=== PATIENT | male | born 1950 | race Caucasian/White ===

== ENCOUNTER 2017-03-09 15:32 | Emergency (ER) | payer BC ==
[2017-03-09 15:48] VITALS: BP 138/75; PULSE 81; RESP 18; TEMP 97.8
[2017-03-09] MEDS ORDERED: DIPH,PERTUS(ACELL)TETVAC-LF 0.5 ML VIAL IM ONE (16:21)
[2017-03-09] MEDS ORDERED: TOPICAL SKIN ADHESIVE 1 EACH AMP TOPICAL ONE (16:21)
--- NOTE | 2017-03-09 16:27 | ED ---
Wound/Laceration HPI - General Chief Complaint: Wound/Laceration Stated Complaint: rt thumb lac Time Seen by Provider: 03/09/17 15:44 Source: patient, RN notes reviewed Mode of arrival: ambulatory Limitations: no limitations - History of Present Illness Initial Comments: Patient 66-year-old male presents to the emergency room for evaluation of right thumb laceration. Patient states he was opening a can of tuna fish and cut his finger. Patient states the area begin to bleed. Patient denies taking blood thinners. Patient states he is not up-to-date on his tetanus vaccine. Patient denies significant pain. Patient denies any other injuries during incident. Patient denies numbness or tingling in his thumb. - Related Data Allergies Allergy/AdvReac Type Severity Reaction Status Date / Time iodine AdvReac Rash/Hives Verified 03/09/17 15:48 Penicillins AdvReac Rash/Hives Verified 03/09/17 15:48 Review of Systems ROS Statement: Those systems with pertinent positive or pertinent negative responses have been documented in the HPI. ROS Other: All systems not noted in ROS Statement are negative. Past Medical History Past Medical History: Hypertension History of Any Multi-Drug Resistant Organisms: None Reported Past Surgical History: Adenoidectomy, Tonsillectomy Past Psychological History: No Psychological Hx Reported Smoking Status: Current some day smoker Past Alcohol Use History: None Reported Past Drug Use History: None Reported General Exam - General Exam Comments Initial Comments: Sitting in exam room in no acute distress. Limitations: no limitations General appearance: alert, in no apparent distress Head exam: Present: atraumatic, normocephalic, normal inspection Eye exam: Present: normal appearance ENT exam: Present: normal exam Neck exam: Present: normal inspection Respiratory exam: Absent: respiratory distress Right Hand Wrist exam: Present: full ROM, laceration (Superficial laceration on the distal phalanx of thumb medial of nail bed. No active bleeding noted.). Absent : tenderness Vascular: Present: normal capillary refill (Capillary refill less than 2 seconds ), radial pulse (2+), ulnar pulse (2+) Back exam: Present: normal inspection Neurological exam: Present: alert, oriented X3, CN II-XII intact, normal gait Psychiatric exam: Present: normal affect, normal mood Skin exam: Present: warm, dry. Absent: rash Course Vital Signs 03/09/17 15:43 Temperature 97.8 F Pulse Rate 81 Respiratory 18 Rate Blood Pressure 138/75 O2 Sat by Pulse 99 Oximetry Procedures - Laceration Laceration #1 Consent Obtained: verbal consent Indication: laceration Site: other (right thumb) Size (cm): 1 Description: flap Depth: simple, single layer Size of Sutures: other (Dermabond) Patient Tolerated Procedure: well, no complications Medical Decision Making - Medical Decision Making Patient is a 66-year-old male presents to the emergency room for evaluation of a right thumb laceration. Laceration repaired with Dermabond. Patient updated on his tetanus vaccine. Patient states he understands everything that was discussed with him. Return parameters discussed. Case discussed with Dr. Gomes. Disposition Clinical Impression: Thumb laceration Disposition: HOME SELF-CARE Condition: Good Instructions: Laceration (ED), Skin Adhesive Care (ED) Additional Instructions: Do not soak the area in water. Dermabond will fall off in 5-10 days. Please follow up with primary care provider in 1-2 days. If any new symptom arises or symptoms worsen, return to ER as soon as possible. Referrals: Omid Blackburn DO [Primary Care Provider] - 1-2 days Time of Disposition: 16:37
== END 2017-03-09 16:45 | disposition home or self-care (01) ==
LOC: EC 15:32
DX: S61.011A Laceration without foreign body of right thumb without damage to nail, initial encounter (principal); F17.200 Nicotine dependence, unspecified, uncomplicated; Z23 Encounter for immunization; Z88.0 Allergy status to penicillin; Z88.8 Allergy status to other drugs, medicaments and biological substances; W26.8XXA Contact with other sharp object(s), not elsewhere classified, initial encounter
CPT/HCPCS: 12001; 90471; 90715; 99282

== ENCOUNTER 2017-10-04 06:19 | Inpatient (IN) | payer BC ==
[2017-10-04] MEDS ORDERED: HYDROmorphone 1 MG/ML 1 ML SYRINGE IM STA (06:26)
[2017-10-04] MEDS ORDERED: ONDANSETRON ODT 4 MG TAB PO STA (06:26)
--- NOTE | 2017-10-04 06:28 | ED ---
General Adult HPI - General Source: RN notes reviewed <Simone Vasquez - Last Filed: 10/04/17 06:58> <Micheal Gomes - Last Filed: 10/04/17 10:16> - General Stated complaint: Pulled muscle in chest Time Seen by Provider: 10/04/17 06:20 - History of Present Illness Initial comments: This is a 67-year-old male who comes in complaining of right sided chest wall pain on the lateral aspect of the chest. Patient states he fell on that side on night ever since his been painful to breathe. Patient states it does not hurt to palpate but anytime he breathes he has pain in that area. Patient states when he doesn't breathe deep he has no pain whatsoever. Patient states been ongoing since and it has gotten any better. Patient states she did take Motrin this morning but he hasn't been taking it regularly. Patient denies any head pain or neck pain. Patient denies any anterior chest pain. Patient denies any shortness of breath difficulty breathing. Patient denies any diaphoresis. Patient denies any nausea. Patient denies any abdominal pain. (Simone Vasquez) - Related Data Allergies Allergy/AdvReac Type Severity Reaction Status Date / Time iodine AdvReac Rash/Hives Verified 10/04/17 07:16 Penicillins AdvReac Rash/Hives Verified 10/04/17 07:16 Review of Systems ROS Other: All systems not noted in ROS Statement are negative. <Simone Vasquez - Last Filed: 10/04/17 06:58> ROS Other: All systems not noted in ROS Statement are negative. <Micheal Gomes - Last Filed: 10/04/17 10:16> ROS Statement: Those systems with pertinent positive or pertinent negative responses have been documented in the HPI. Past Medical History Past Medical History: Hypertension History of Any Multi-Drug Resistant Organisms: None Reported Past Surgical History: Adenoidectomy, Tonsillectomy Past Psychological History: No Psychological Hx Reported Smoking Status: Current some day smoker Past Alcohol Use History: None Reported Past Drug Use History: None Reported <Simone Vasquez - Last Filed: 10/04/17 06:58> General Exam <Simone Vasquez - Last Filed: 10/04/17 06:58> <Gomes,Micheal - Last Filed: 10/04/17 10:16> - General Exam Comments Initial Comments: GENERAL: Patient is well-developed and well-nourished. Patient is nontoxic and well- hydrated and is in mild distress with deep breathing ENT: Neck is soft and supple. No significant lymphadenopathy is noted. Oropharynx is clear. Moist mucous membranes. Neck has full range of motion without eliciting any pain. EYES: The sclera were anicteric and conjunctiva were pink and moist. Extraocular movements were intact and pupils were equal round and reactive to light. Eyelids were unremarkable. PULMONARY: Unlabored respirations. Good breath sounds bilaterally. No audible rales rhonchi or wheezing was noted. CARDIOVASCULAR: There is a regular rate and rhythm without any murmurs gallops or rubs. ABDOMEN: Soft and nontender with normal bowel sounds. No palpable organomegaly was noted. There is no palpable pulsatile mass. SKIN: Skin is clear with no lesions or rashes and otherwise unremarkable. NEUROLOGIC: Patient is alert and oriented x3. Cranial nerves II through XII are grossly intact. Motor and sensory are also intact. Normal speech, volume and content. Symmetrical smile. MUSCULOSKELETAL: Normal extremities with adequate strength and full range of motion. No lower extremity swelling or edema. No calf tenderness. LYMPHATICS: No significant lymphadenopathy is noted PSYCHIATRIC: Normal psychiatric evaluation. Normal interpersonal interactions appears functionally intact in deals appropriately with others. No signs of depression. No signs of anxiety. (Simone Vasquez) Vital Signs 10/04/17 10/04/17 06:31 08:41 Temperature 97.5 F L Pulse Rate 100 108 H Respiratory 18 18 Rate Blood Pressure 147/72 152/67 O2 Sat by Pulse 100 Oximetry Medical Decision Making <Simone Vasquez - Last Filed: 10/04/17 06:58> - Lab Data Result diagrams: 10/04/17 06:50 10/04/17 06:50 - Radiology Data Radiology results: report reviewed (Gallbladder ultrasound shows cholelithiasis and prominent size of the gallbladder. Numerous focal nodules concerning for neoplasm or hepatocellular carcinoma. Computed tomography scan of the chest shows no definite pulmonary embolism. Small right effusion. Liver masses concerning for hepatocellular carcinoma. Questionable portal vein thrombosis.) , image reviewed (Chest x-ray shows no acute process. Thoracic spine suggesting alkalosic spondylitis) <Micheal Gomes - Last Filed: 10/04/17 10:16> - Medical Decision Making EKG shows sinus tachycardia with frequent PVCs at 106 bpm NC interval is 134 QRS is 88 QT interval 3:30 QTC is 438. Patient's EKG shows some ST segment depression in precordial leads V3 through V6 Dr. Gomes will be taking over the care of this patient at 7 AM (Simone Vasquez) Patient reevaluated and updated. Case discussed with Dr. guevara, who will admit for Dr. Blackburn. Consults will be placed. (Micheal Gomes) - Lab Data Lab Results 10/04/17 10/04/17 10/04/17 Range/Units 06:50 06:50 06:50 WBC 10.5 (3.8-10.6) k/uL RBC 3.98 L (4.30-5.90) m/uL Hgb 10.9 L (13.0-17.5) gm/dL Hct 35.2 L (39.0-53.0) % MCV 88.5 (80.0-100.0) fL MCH 27.3 (25.0-35.0) pg MCHC 30.9 L (31.0-37.0) g/dL RDW 13.2 (11.5-15.5) % Plt Count 385 (150-450) k/uL Neutrophils % 81 % Lymphocytes % 8 % Monocytes % 9 % Eosinophils % 1 % Basophils % 0 % Neutrophils # 8.4 H (1.3-7.7) k/uL Lymphocytes # 0.8 L (1.0-4.8) k/uL Monocytes # 0.9 (0-1.0) k/uL Eosinophils # 0.1 (0-0.7) k/uL Basophils # 0.0 (0-0.2) k/uL Hypochromasia Slight PT (9.0-12.0) sec INR (<1.2) APTT (22.0-30.0) sec D-Dimer (<0.60) mg/L FEU Sodium 140 (137-145) mmol/L Potassium 4.6 (3.5-5.1) mmol/L Chloride 106 (98-107) mmol/L Carbon Dioxide 23 (22-30) mmol/L Anion Gap 11 mmol/L BUN 11 (9-20) mg/dL Creatinine 0.73 (0.66-1.25) mg/dL Est GFR (MDRD) Af Amer >60 (>60 ml/min/1.73 sqM) Est GFR (MDRD) Non-Af >60 (>60 ml/min/1.73 sqM) Glucose 182 H (74-99) mg/dL Calcium 9.3 (8.4-10.2) mg/dL Magnesium 2.0 (1.6-2.3) mg/dL Total Bilirubin 0.8 (0.2-1.3) mg/dL AST 122 H (17-59) U/L ALT 113 H (21-72) U/L Alkaline Phosphatase 381 H (38-126) U/L Total Creatine Kinase 300 H (55-170) U/L CK-MB (CK-2) 11.1 H* (0.0-2.4) ng/mL CK-MB (CK-2) Rel Index 3.7 Troponin I <0.012 (0.000-0.034) ng/mL Total Protein 6.0 L (6.3-8.2) g/dL Albumin 3.4 L (3.5-5.0) g/dL 10/04/17 Range/Units 06:50 WBC (3.8-10.6) k/uL RBC (4.30-5.90) m/uL Hgb (13.0-17.5) gm/dL Hct (39.0-53.0) % MCV (80.0-100.0) fL MCH (25.0-35.0) pg MCHC (31.0-37.0) g/dL RDW (11.5-15.5) % Plt Count (150-450) k/uL Neutrophils % % Lymphocytes % % Monocytes % % Eosinophils % % Basophils % % Neutrophils # (1.3-7.7) k/uL Lymphocytes # (1.0-4.8) k/uL Monocytes # (0-1.0) k/uL Eosinophils # (0-0.7) k/uL Basophils # (0-0.2) k/uL Hypochromasia PT 11.8 (9.0-12.0) sec INR 1.2 H (<1.2) APTT 20.8 L (22.0-30.0) sec D-Dimer 1.65 H (<0.60) mg/L FEU Sodium (137-145) mmol/L Potassium (3.5-5.1) mmol/L Chloride (98-107) mmol/L Carbon Dioxide (22-30) mmol/L Anion Gap mmol/L BUN (9-20) mg/dL Creatinine (0.66-1.25) mg/dL Est GFR (MDRD) Af Amer (>60 ml/min/1.73 sqM) Est GFR (MDRD) Non-Af (>60 ml/min/1.73 sqM) Glucose (74-99) mg/dL Calcium (8.4-10.2) mg/dL Magnesium (1.6-2.3) mg/dL Total Bilirubin (0.2-1.3) mg/dL AST (17-59) U/L ALT (21-72) U/L Alkaline Phosphatase (38-126) U/L Total Creatine Kinase (55-170) U/L CK-MB (CK-2) (0.0-2.4) ng/mL CK-MB (CK-2) Rel Index Troponin I (0.000-0.034) ng/mL Total Protein (6.3-8.2) g/dL Albumin (3.5-5.0) g/dL Disposition <Simone Vasquez - Last Filed: 10/04/17 06:58> Decision Time: 10:16 <Micheal Gomes - Last Filed: 10/04/17 10:16> Clinical Impression: Right-sided chest pain, Liver lesion, Cholelithiasis Disposition: ADMITTED IP TO THIS [facility] Referrals: Omid Blackburn DO [Primary Care Provider] - 1-2 days
--- NOTE | 2017-10-04 07:10 | XR ---
EXAM: XR Chest, 2 Views CLINICAL HISTORY: Reason: Difficulty breathing TECHNIQUE: Frontal and lateral views of the chest. COMPARISON: No relevant prior studies available. FINDINGS: Lungs: Unremarkable. No consolidation. Pleural space: Unremarkable. No pneumothorax. Heart: Unremarkable. No cardiomegaly. Mediastinum: Unremarkable. Bones/joints: Degenerative changes of the spine. Appearance of marginal syndesmophytes throughout the spine. Correlate for ankylosing spondylitis Upper abdomen: Elevated right hemidiaphragm. IMPRESSION: 1. No evidence of acute cardiopulmonary disease. 2. Appearance of the thoracic spine suggestive of ankylosing spondylitis.
[2017-10-04 07:14] LABS: Basophils % (A) 0 %; CH 27.3; Eosinophils # (A) 0.1 k/uL (0-0.7); Eosinophils % (A) 1 %; HCT 35.2 % (39.0-53.0); HDW 2.57; HGB 10.9 gm/dL (13.0-17.5); Hypochromasia Slight; Luc % (Auto) 2; Lymphocytes # (A) 0.8 k/uL (1.0-4.8); Lymphocytes % (A) 8 %; MCH 27.3 pg (25.0-35.0); MCHC 30.9 g/dL (31.0-37.0); MCV 88.5 fL (80.0-100.0); Mean Platelet Volume 7.8; Monocytes # (A) 0.9 k/uL (0-1.0); Monocytes % (A) 9 %; Neutrophils # (A) 8.4 k/uL (1.3-7.7); Neutrophils % (A) 81 %; RBC 3.98 m/uL (4.30-5.90); RDW 13.2 % (11.5-15.5); WBC 10.5 k/uL (3.8-10.6); WBC (Perox) 10.88
[2017-10-04 07:25] LABS: ALT 113 U/L (21-72); AST 122 U/L (17-59); Alkaline Phosphatase 381 U/L (38-126); Anion Gap 11 mmol/L; Blood Urea Nitrogen 11 mg/dL (9-20); Calcium 9.3 mg/dL (8.4-10.2); Carbon Dioxide 23 mmol/L (22-30); Chloride 106 mmol/L (98-107); Glucose 182 mg/dL (74-99); Non-African American GFR(MDRD) >60 (>60 ml/min/1.73 sqM); Potassium 4.6 mmol/L (3.5-5.1); Sodium 140 mmol/L (137-145); Total Bilirubin 0.8 mg/dL (0.2-1.3)
[2017-10-04 07:28] LABS: INR 1.2 (<1.2); Prothrombin Time 11.8 sec (9.0-12.0)
[2017-10-04 07:37] LABS: Creatine Kinase 300 U/L (55-170)
[2017-10-04 07:48] LABS: Partial Thromboplastin Time 20.8 sec (22.0-30.0)
[2017-10-04 07:49] LABS: Troponin I <0.012 ng/mL (0.000-0.034)
[2017-10-04 08:00] LABS: Creatine Kinase MB 11.1 ng/mL (0.0-2.4)
[2017-10-04] MEDS ORDERED: methylPREDNISolone SOD SUCCI 125 MG/2 ML VIAL IV STA (08:13)
[2017-10-04] MEDS ORDERED: RX INFO: IV CONTRAST WAS GIVEN 1 EACH MISC MISCELLANE PRN (08:13)
[2017-10-04] MEDS ORDERED: FAMOTIDINE 20 MG/2 ML VIAL IV STA (08:13)
[2017-10-04] MEDS ORDERED: diphenhydrAMINE 50 MG/ML 1 ML VIAL IVP STA (08:13)
--- NOTE | 2017-10-04 09:08 | US ---
EXAMINATION TYPE: US gallbladder DATE OF EXAM: 10/04/2017 COMPARISON: NONE CLINICAL HISTORY: Pain. Intermittent chest and right arm pain EXAM MEASUREMENTS: Liver Length: 18.8 cm Gallbladder Wall: 0.2 cm CBD: 0.7 cm Right Kidney: 10.9 x 5.5 x 4.9 cm Pancreas: visualized portions wnl, head and tail obscured by overlying midline bowel gas Liver: enlarged at 18.8cm, heterogeneous with multiple hypo and isoechoic lesions throughout with la rgest measuring 2.5cm Gallbladder: appears borderline hydropic with transverse measurement of 4.8cm, 1.0cm mobile gallston e. Evidence for sonographic Seaman's sign: no CBD: visualized portions dilated at 0.6cm, limited by overlying bowel gas Right Kidney: no hydro or masses seen, inferior pole limited by overlying bowel gas IMPRESSION: 1. Cirrhotic morphology of the liver with numerous focal nodules neck are present regenerative nodule s or neoplasm such as hepatocellular carcinoma. Further evaluation with enhanced MR could be performe d for characterization. 2. Cholelithiasis and prominent size of the gallbladder without other sonographic signs of cholecysti tis.
--- NOTE | 2017-10-04 09:34 | CT ---
EXAMINATION TYPE: CT angio chest DATE OF EXAM: 10/04/2017 COMPARISON: NONE HISTORY: Patient poor historian. Patient displays weakness. Rule out PE. CT DLP: 609 mGycm. Automated Exposure Control for Dose Reduction was Utilized. CONTRAST: CTA scan of the thorax is performed with IV Contrast, patient injected with 100 mL of Omnipaque 350, pulmonary embolism protocol. MIP Images are created on CT scanner and reviewed. FINDINGS: LUNGS: The lungs are grossly clear, there is no concerning parenchymal mass or nodule identified. T here is pneumothorax seen. The tracheobronchial tree is patent. There is a small right pleural effus ion with associated subsegmental compressive atelectasis. Other areas of pleural parenchymal linear s carring are noted bilaterally. Asymmetric and mild left greater than right gynecomastia is present, m ost likely related to the patient's underlying hepatocellular disease. MEDIASTINUM: There is satisfactory enhancement of the pulmonary artery and its branches, there is no CT evidence for pulmonary embolism. There are no greater than 1 cm hilar or mediastinal lymph nodes. No cardiomegaly or pericardial effusion is seen. Ascending aorta measures 3.0 cm and is within nor mal limits. OTHER: There is a cirrhotic morphology of the liver with innumerable peripherally arterial enhancing hepatic lesions and single 2.6 cm hepatic cyst within segment 8 of the liver. Other smaller possible hepatic cysts are seen within segment IVb and subcapsular within segment 4A. There is also filling de fect within the portal vein and portal vein prominence in size measuring 1.6 cm. This could relate to tumor thrombus, bland thrombus or admixing of contrast and be artifactual in nature. Multiple lymph nodes in the radha hepatis are mildly enlarged measuring up to 1.0 cm in short axis. Small epiphrenic lymph nodes are also seen, nonenlarged. There is partial visualization of a left upper pole renal cyst measuring 6.5 x 7.3 cm, simple in its visualized portions. Multilevel degenerative changes of the thoracic spine are present. IMPRESSION: 1. Slightly suboptimal bolus timing, however no evidence of pulmonary embolus is identified. 2. Cirrhotic morphology of the liver with innumerable peripherally arterial enhancing masses which sh ould be considered multifocal hepatocellular carcinoma until proven otherwise. Regenerative nodules a re also possibility although considered less likely and enhanced MR could be performed for further ch aracterization. Singular hepatic cyst is also present. Possible portal vein thrombosis is also seen, which can be seen in hepatocellular carcinoma although this could be artifactual and related admixing of contrast. 3. Small right pleural effusion with associated right basilar subsegmental compressive atelectasis. 4. Asymmetric left greater than right mild gynecomastia most likely related to the patient's underlyi ng hepatocellular disease.
[2017-10-04] MEDS ORDERED: HYDROmorphone 1 MG/ML 1 ML SYRINGE IVP PRN (10:17)
[2017-10-04] MEDS ORDERED: NALOXONE 0.4 MG/ML 1 ML VIAL IV PRN (10:17)
[2017-10-04] MEDS ORDERED: HEPARIN SODIUM,PORCINE 5,000 UNIT/ML 1 ML VIAL IV ONE (10:20)
[2017-10-04] MEDS: HEPARIN SODIUM,PORCINE/D5W PMX 25,000 UNIT in DEXTROSE/WATER 1 500ML.BAG IV SCH (11:17)
[2017-10-04] MEDS: HYDROmorphone 1 MG/ML 1 ML SYRINGE IVP PRN ×3 (12:38→20:12)
--- NOTE | 2017-10-04 13:33 | P.GSCN ---
<Mercedez Ragland - Last Filed: 10/04/17 13:05> History of Present Illness Consult date: 10/04/17 Reason for Consult: Abnormal gallbladder ultrasound, abnormal CAT scan of chest History of present illness: 67-year-old male who being seen at the request of the attending for surgical eval for abnormal gallbladder ultrasound showing numerous focal nodules concerning for a neoplasm or hepatocellular carcinoma with a CAT scan of the chest with questionable portal vein thrombus noted . Patient presented on the day of admission to the emergency room with a chief complaint of developing right side chest wall pain lateral aspect after he fell last while at work . Patient stated he tripped over some wiring landed on his right chest wall . The next morning had pain with any movement involving the right chest wall. Patient stated the pain did not go away became concerned presented to the emergency room to be evaluated. Patient denied any nausea vomiting diaphoresis or abdominal pain when questioning . In the emergency room the d-dimer was elevated to 1.6. This was followed up with a CAT scan of the chest which showed no evidence of a pulmonary emboli questionable portal vein thrombus noted elevated AST and ALT the gallbladder ultrasound done did show numerous focal nodules with concern for neoplasm or hepatocellular patient gives no history of unintentional weight loss denies alcohol use states it's been greater than 40 years since his last drink of alcohol recently quit smoking cigarettes. Patient has no significant past medical history except for hypertension, hyperlipidemia, glaucoma surgical history tonsillectomy, hernia repair adenoidectomy Review of Systems Essentially unremarkable except as mentioned in the present illness Past Medical History Past Medical History: Eye Disorder, Hyperlipidemia, Hypertension Additional Past Medical History / Comment(s): Bilateral glaucoma History of Any Multi-Drug Resistant Organisms: None Reported Past Surgical History: Adenoidectomy, Hernia Repair, Tonsillectomy Additional Past Surgical History / Comment(s): Bilateral cataract removal with lens implants, R inguinal hernia repair. Past Anesthesia/Blood Transfusion Reactions: No Reported Reaction Smoking Status: Former smoker - Past Family History Father Family Medical History: Diabetes Mellitus Additional Family Medical History / Comment(s): Father of a diabetic coma at the age of 66 yrs. Mother Family Medical History: Cancer Additional Family Medical History / Comment(s): Mother of colon cancer. Pt unable to recall at what age. Medications and Allergies Home Medications Medication Instructions Recorded Confirmed Type Dorzolamide 2% [Trusopt 2%] 1 drop BOTH EYES DAILY 10/04/17 10/04/17 History Ibuprofen [Motrin] 800 mg PO Q8H PRN 10/04/17 10/04/17 History Latanoprost Ophth [Xalatan 0.005%] 1 drops BOTH EYES HS 10/04/17 10/04/17 History Loratadine [Claritin] 10 mg PO DAILY 10/04/17 10/04/17 History Multivitamins, Thera [Multivitamin 1 tab PO DAILY 10/04/17 10/04/17 History (formulary)] Simvastatin [Zocor] 10 mg PO HS 10/04/17 10/04/17 History Valsartan [Diovan] 160 mg PO DAILY 10/04/17 10/04/17 History Allergies Allergy/AdvReac Type Severity Reaction Status Date / Time iodine AdvReac Rash/Hives Verified 10/04/17 07:16 Penicillins AdvReac Rash/Hives Verified 10/04/17 07:16 Surgical - Exam Vital Signs Temp Pulse Resp BP Pulse Ox 97.5 F L 100 18 147/72 100 10/04/17 06:31 10/04/17 06:31 10/04/17 06:31 10/04/17 06:31 10/04/17 06:31 GENERAL APPEARANCE: 67-year-old male patient is alert, oriented, in no acute distress. Well-nourished well-hydrated nontoxic states has discomfort if he takes in a deep breath on the right lateral chest wall VITAL SIGNS: Reviewed HEENT: Head is normocephalic and atraumatic. Pupils are equal and reactive. The nares are patent. Oropharynx is clear without lesions. NECK: Supple without lymphadenopathy. Traches midline. HEART: S1, S2. Regular rate and rhythm. Denying chest pain denying chest pain denies heart palpitations LUNGS: No crackles or wheezes are heard. On room air no shortness of breath noted no cough noted ABDOMEN: Soft, nontender, nondistended with good bowel sounds. No peritoneal signs. No palpable organomegaly or masses. EXTREMITIES: Normal skin color and turgor. No cyanosis, rash, ulceration, clubbing or edema. Radial pedal pulses are 2/4 bilaterally. NEUROLOGICAL: No focal deficits. Strength and sensation are grossly intact. Results - Labs 10/04/17 06:50 10/04/17 06:50 Abnormal Lab Results - Last 24 Hours (Table) 10/04/17 10/04/17 10/04/17 Range/Units 06:50 06:50 06:50 RBC 3.98 L (4.30-5.90) m/uL Hgb 10.9 L (13.0-17.5) gm/dL Hct 35.2 L (39.0-53.0) % MCHC 30.9 L (31.0-37.0) g/dL Neutrophils # 8.4 H (1.3-7.7) k/uL Lymphocytes # 0.8 L (1.0-4.8) k/uL INR (<1.2) APTT (22.0-30.0) sec D-Dimer (<0.60) mg/L FEU Glucose 182 H (74-99) mg/dL AST 122 H (17-59) U/L ALT 113 H (21-72) U/L Alkaline Phosphatase 381 H (38-126) U/L Total Creatine Kinase 300 H (55-170) U/L CK-MB (CK-2) 11.1 H* (0.0-2.4) ng/mL Total Protein 6.0 L (6.3-8.2) g/dL Albumin 3.4 L (3.5-5.0) g/dL 10/04/17 Range/Units 06:50 RBC (4.30-5.90) m/uL Hgb (13.0-17.5) gm/dL Hct (39.0-53.0) % MCHC (31.0-37.0) g/dL Neutrophils # (1.3-7.7) k/uL Lymphocytes # (1.0-4.8) k/uL INR 1.2 H (<1.2) APTT 20.8 L (22.0-30.0) sec D-Dimer 1.65 H (<0.60) mg/L FEU Glucose (74-99) mg/dL AST (17-59) U/L ALT (21-72) U/L Alkaline Phosphatase (38-126) U/L Total Creatine Kinase (55-170) U/L CK-MB (CK-2) (0.0-2.4) ng/mL Total Protein (6.3-8.2) g/dL Albumin (3.5-5.0) g/dL Diabetes panel 10/04/17 Range/Units 06:50 Sodium 140 (137-145) mmol/L Potassium 4.6 (3.5-5.1) mmol/L Chloride 106 (98-107) mmol/L Carbon Dioxide 23 (22-30) mmol/L BUN 11 (9-20) mg/dL Creatinine 0.73 (0.66-1.25) mg/dL Glucose 182 H (74-99) mg/dL Calcium 9.3 (8.4-10.2) mg/dL AST 122 H (17-59) U/L ALT 113 H (21-72) U/L Alkaline Phosphatase 381 H (38-126) U/L Total Protein 6.0 L (6.3-8.2) g/dL Albumin 3.4 L (3.5-5.0) g/dL Calcium panel 10/04/17 Range/Units 06:50 Calcium 9.3 (8.4-10.2) mg/dL Albumin 3.4 L (3.5-5.0) g/dL Pituitary panel 10/04/17 Range/Units 06:50 Sodium 140 (137-145) mmol/L Potassium 4.6 (3.5-5.1) mmol/L Chloride 106 (98-107) mmol/L Carbon Dioxide 23 (22-30) mmol/L BUN 11 (9-20) mg/dL Creatinine 0.73 (0.66-1.25) mg/dL Glucose 182 H (74-99) mg/dL Calcium 9.3 (8.4-10.2) mg/dL Adrenal panel 10/04/17 Range/Units 06:50 Sodium 140 (137-145) mmol/L Potassium 4.6 (3.5-5.1) mmol/L Chloride 106 (98-107) mmol/L Carbon Dioxide 23 (22-30) mmol/L BUN 11 (9-20) mg/dL Creatinine 0.73 (0.66-1.25) mg/dL Glucose 182 H (74-99) mg/dL Calcium 9.3 (8.4-10.2) mg/dL Total Bilirubin 0.8 (0.2-1.3) mg/dL AST 122 H (17-59) U/L ALT 113 H (21-72) U/L Alkaline Phosphatase 381 H (38-126) U/L Total Protein 6.0 L (6.3-8.2) g/dL Albumin 3.4 L (3.5-5.0) g/dL Assessment and Plan Assessment: Impression Present on admission right lateral chest wall pain suspect due to a fall 5 days prior Elevated d-dimer CAT scan of the chest no evidence of a pulmonary emboli with questionable portal vein thrombus Ultrasound of the gallbladder numerous focal nodules concern for neoplasm or hepatic cellular cancer Present on admission elevated AST,ALT , alkaline phosphatase Plan recommend a malignancy workup Tumor markers will be ordered No evidence of an acute surgical abdomen Continue IV heparin until vascular evaluates with recommendations regarding questionable portal vein thrombus Await GI workup may benefit from an MRCP Await Dr. Verde oncology eval Defer to admitting service and other consultants for further medical issues Will follow The above impression and plan of care have been discussed and directed by signing physician. Mercedez Ragland nurse practitioner acting as scribe for signing physician. <Yazan,Ahmad W - Last Filed: 10/05/17 09:36> Surgical - Exam Vital Signs Temp Pulse Resp BP Pulse Ox 97.5 F L 100 18 147/72 100 10/04/17 06:31 10/04/17 06:31 10/04/17 06:31 10/04/17 06:31 10/04/17 06:31 Results - Labs 10/04/17 06:50 10/04/17 06:50 Abnormal Lab Results - Last 24 Hours (Table) 10/04/17 10/04/17 Range/Units 13:02 18:53 Total Creatine Kinase 305 H 262 H (55-170) U/L CK-MB (CK-2) 10.8 H* 8.8 H* (0.0-2.4) ng/mL
[2017-10-04 14:00] LABS: Creatine Kinase 305 U/L (55-170)
[2017-10-04 14:10] LABS: Troponin I <0.012 ng/mL (0.000-0.034)
[2017-10-04 14:14] LABS: Creatine Kinase MB 10.8 ng/mL (0.0-2.4)
--- NOTE | 2017-10-04 16:09 | CONS ---
CONSULTATION This patient is 67-year-old gentleman who has been admitted to Dr. Walter's service with history of discomfort and pain in the right chest wall. The patient had a complete workup including ultrasound and CT scan. Gallbladder ultrasound showed numerous focal nodules concerning for neoplasm and patient had a CT scan of the chest with questionable portal vein thrombosis and we were consulted. Patient has no history of nausea vomiting. PHYSICAL EXAMINATION: On examination, the patient was seen in his room. Neck is supple. No bruit appreciated. Chest is clear. Abdomen is soft, nontender. CT of the chest showed evidence of no evidence of pulmonary embolism. CT of the abdomen showed liver has focal nodules which concerns about a neoplasm or hepatocellular cancer. There is no history of any and evidence of any weight loss. No jaundice or liver pancreatic disease. The patient was seen by the general surgery consult for further evaluation. The patient had a liver function test enzymes are not elevated. At this point, patient is on heparin for possible portal vein thrombosis. The patient was seen by Hematology. At this point, there is no indication for any surgical intervention for portal vein thrombosis. We will wait for hematology consult. Probably we will continue with anticoagulation until the patient has a complete workup for metastatic workup. Thank you very much for the consult. MMODL / IJN: [id number] /
[2017-10-04] MEDS ORDERED: HEPARIN SODIUM,PORCINE 5,000 UNIT/ML 1 ML VIAL IV STA (19:21)
[2017-10-04 19:36] LABS: Creatine Kinase 262 U/L (55-170)
[2017-10-04 19:47] LABS: Troponin I <0.012 ng/mL (0.000-0.034)
[2017-10-04 19:49] LABS: Creatine Kinase MB 8.8 ng/mL (0.0-2.4)
[2017-10-04] MEDS: ATORVASTATIN 10 MG TAB PO SCH (20:11)
[2017-10-04] MEDS: LATANOPROST 0.005% OPHTH DROPS 2.5 ML BTL BOTH EYES SCH (20:11)
--- NOTE | 2017-10-04 22:23 | P.HPIM ---
History of Present Illness H&P Date: 10/04/17 Chief Complaint: Right upper chest wall chest pain HISTORY OF PRESENT ILLNESS: 67-year-old male patient of Dr. Omid Blackburn with chronic stable medical conditions that include bilateral glaucoma, hypertension, hyperlipidemia, who presented to the emergency department with complaints of right-sided chest wall chest pain on the lateral aspect of the chest. Patient states that he fell on at work and this area has been painful ever since making it difficult for him to breathe. States it does not hurt to palpate it only when he takes a deep breath he has pain in that area. Patient has not improved since initial fall and has only gotten worse. Took some Motrin at home with no relief. Denies any head or neck pain, denies shortness of breath or difficulty breathing , denies diaphoresis, nausea, abdominal pain. REVIEW OF SYSTEMS GEN.: [ Tired] EYES: [None] HEENT: [None] NECK: [None] RESPIRATORY: [None CARDIOVASCULAR: Right-sided chest wall chest pain] GASTROINTESTINAL: [None] GENITOURINARY: [None] MUSCULOSKELETAL: Right shoulder pain] LYMPHATICS: [None] HEMATOLOGICAL: [None] PSYCHIATRY: [None] NEUROLOGICAL: [None] PAST MEDICAL HISTORY Past medical history: Hypertension, bilateral glaucoma, hyperlipidemia Past surgical history: Adenoidectomy, tonsillectomy Past psychological history: None reported SOCIAL HISTORY: Additional psychological/social history: Work history: Works for [employer] Marital status: lives with his Smoking history: None reported Alcohol use history: None reported Drug use history: None reported FAMILY HISTORY: Significant for diabetes mellitus, father of a diabetic coma at age 66. HOME MEDICATION: Dorzolamide 1 drop in each eye daily Valsartan 160 mg by mouth daily Simvastatin 10 mg by mouth at at bedtime Multivitamin 1 tab by mouth daily Loratidine.10 mg by mouth daily Latanoprost ophthalmic solution 1 drop both eyes at at bedtime Ibuprofen 800 mg by mouth every 8 hours when necessary ALLERGIES: Iodine/rash and hives Penicillins/rash and hives VITAL SIGNS: [Reviewed. BMI noted] GENERAL: [Average built, lying in bed appears comfortable]. EYES: [Pupils equal. Conjunctiva roula]l. HEENT: [External appearance of nose and ears normal, oral cavity grossly normal] . NECK: [JVD not raised; masses not palpable]. HEART: [First and second heart sounds are normal; no edema]. LUNGS:[ Respiratory rate normal; clear to auscultation]. ABDOMEN: [Soft, mild tenderness to right upper and lower quadrants, liver spleen not palpable, no masses palpable]. LYMPHATICS: [No lymph nodes palpable in the axilla and neck]. PSYCH: [Alert and oriented x3; mood and affect roula]l. MUSCULOSKELETAL: Right shoulder tender to palpation, right chest wall mildly tender to palpation NEUROLOGICAL: [Cranial nerves grossly intact; no facial asymmetry, power and sensation grossly intact]. INVESTIGATIONS: Hemoglobin 10.9, INR 1.2, d-dimer 1.65, AST 122, ALTs 113, alkaline phosphatase 381, CK 300, Gallbladder ultrasound: Cirrhotic morphology of the liver with numerous focal nodules, neck are present regenerative nodules or neoplasm such as hepatocellular carcinoma. Cholelithiasis and prominent size the gallbladder without sonographic signs of cholecystitis Chest CTA: No evidence of pulmonary embolus identified, cirrhotic morphology of the liver with innumerable peripherally arterial enhancing masses which should be considered multifocal hepatocellular carcinoma until proven otherwise. Small right neural effusion with associated right basilar subsegmental compressive atelectasis, asymmetric left greater than right mild gynecomastia most likely related to patient's underlying hepatocellular disease. ASSESSMENT: -Right-sided chest wall chest pain, unclear etiology, in the differential is status post fall injury, cholelithiasis, possible neoplasm. -Essential hypertension -Hyperlipidemia -Seasonal ALLERGIES -IV heparin monitoring PLAN: Home medications reordered, vascular surgery, general surgery, GI, hematology oncology consulted. At the present time general surgery does not feel that this is an acute abdomen, recommending him a malignancy workup hence the consult hematology oncology. Vascular surgery has seen the patient recommends continue the IV heparin until hematology oncology workup is been completed. Await additional input from GI and hematology oncology. Plan of care discussed with the patient the bedside he is in agreement. 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 Walter Past Medical History Past Medical History: Eye Disorder, Hyperlipidemia, Hypertension Additional Past Medical History / Comment(s): Bilateral glaucoma History of Any Multi-Drug Resistant Organisms: None Reported Past Surgical History: Adenoidectomy, Hernia Repair, Tonsillectomy Additional Past Surgical History / Comment(s): Bilateral cataract removal with lens implants, R inguinal hernia repair. Past Anesthesia/Blood Transfusion Reactions: No Reported Reaction Smoking Status: Former smoker - Past Family History Father Family Medical History: Diabetes Mellitus Additional Family Medical History / Comment(s): Father of a diabetic coma at the age of 66 yrs. Mother Family Medical History: Cancer Additional Family Medical History / Comment(s): Mother of colon cancer. Pt unable to recall at what age. Medications and Allergies Home Medications Medication Instructions Recorded Confirmed Type Dorzolamide 2% [Trusopt 2%] 1 drop BOTH EYES DAILY 10/04/17 10/04/17 History Ibuprofen [Motrin] 800 mg PO Q8H PRN 10/04/17 10/04/17 History Latanoprost Ophth [Xalatan 0.005%] 1 drops BOTH EYES HS 10/04/17 10/04/17 History Loratadine [Claritin] 10 mg PO DAILY 10/04/17 10/04/17 History Multivitamins, Thera [Multivitamin 1 tab PO DAILY 10/04/17 10/04/17 History (formulary)] Simvastatin [Zocor] 10 mg PO HS 10/04/17 10/04/17 History Valsartan [Diovan] 160 mg PO DAILY 10/04/17 10/04/17 History Allergies Allergy/AdvReac Type Severity Reaction Status Date / Time iodine AdvReac Rash/Hives Verified 10/04/17 07:16 Penicillins AdvReac Rash/Hives Verified 10/04/17 07:16 Physical Exam Vitals: Vital Signs Temp Pulse Pulse Resp BP BP Pulse Ox 10/04/17 15:00 97.5 F L 100 16 136/64 96 10/04/17 12:00 97.6 F 97 18 138/66 97 10/04/17 11:20 97.7 F 97 18 130/60 99 10/04/17 08:41 108 H 18 152/67 10/04/17 06:31 97.5 F L 100 18 147/72 100 Intake and Output 10/04/17 10/04/17 10/04/17 06:59 14:59 22:59 Intake Total 160.667 Balance 160.667 Intake: Intake, IV Titration 160.667 Amount Heparin Sodium,Porcine/ 160.667 D5w Pmx 25,000 unit In Dextrose/Water 1 500ml. bag @ 20 mls/hr IV .Q24H [facility] Rx#:[id number] Other: Weight 97.069 kg Results CBC & Chem 7: 10/04/17 06:50 10/04/17 06:50 Labs: Abnormal Lab Results - Last 24 Hours (Table) 10/04/17 10/04/17 10/04/17 Range/Units 06:50 06:50 06:50 RBC 3.98 L (4.30-5.90) m/uL Hgb 10.9 L (13.0-17.5) gm/dL Hct 35.2 L (39.0-53.0) % MCHC 30.9 L (31.0-37.0) g/dL Neutrophils # 8.4 H (1.3-7.7) k/uL Lymphocytes # 0.8 L (1.0-4.8) k/uL INR (<1.2) APTT (22.0-30.0) sec D-Dimer (<0.60) mg/L FEU Glucose 182 H (74-99) mg/dL AST 122 H (17-59) U/L ALT 113 H (21-72) U/L Alkaline Phosphatase 381 H (38-126) U/L Total Creatine Kinase 300 H (55-170) U/L CK-MB (CK-2) 11.1 H* (0.0-2.4) ng/mL Total Protein 6.0 L (6.3-8.2) g/dL Albumin 3.4 L (3.5-5.0) g/dL 10/04/17 10/04/17 10/04/17 Range/Units 06:50 13:02 18:53 RBC (4.30-5.90) m/uL Hgb (13.0-17.5) gm/dL Hct (39.0-53.0) % MCHC (31.0-37.0) g/dL Neutrophils # (1.3-7.7) k/uL Lymphocytes # (1.0-4.8) k/uL INR 1.2 H (<1.2) APTT 20.8 L (22.0-30.0) sec D-Dimer 1.65 H (<0.60) mg/L FEU Glucose (74-99) mg/dL AST (17-59) U/L ALT (21-72) U/L Alkaline Phosphatase (38-126) U/L Total Creatine Kinase 305 H 262 H (55-170) U/L CK-MB (CK-2) 10.8 H* 8.8 H* (0.0-2.4) ng/mL Total Protein (6.3-8.2) g/dL Albumin (3.5-5.0) g/dL Thrombosis Risk Factor Assmnt - Choose All That Apply Any of the Below Risk Factors Present?: Yes Each Factor Represents 1 point: Obesity (BMI >25) Other Risk Factors: Yes Each Risk Factor Represents 2 Points: Age 61-74 years Other congenital or acquired thrombophilia - If yes, enter type in comment: No Thrombosis Risk Factor Assessment Total Risk Factor Score: 3 Thrombosis Risk Factor Assessment Level: Moderate Risk
[2017-10-05] MEDS: HEPARIN SODIUM,PORCINE 5,000 UNIT/ML 1 ML VIAL IV PRN ×3 (02:39→16:13)
[2017-10-05] MEDS: HYDROmorphone 1 MG/ML 1 ML SYRINGE IVP PRN ×5 (04:17→20:47)
--- NOTE | 2017-10-05 07:46 | HP ---
HISTORY AND PHYSICAL DATE OF ADMISSION: 10/04/2017 ATTENDING NOTE: This patient is seen and examined by me. I discussed with the nurse practitioner, Dylan. This is a patient who fell at work, injuring his right shoulder, is having right-sided chest wall pain laterally and abdominal pain for about 5 days. Appetite has been good. No nausea, vomiting. No fever. PAST MEDICAL HISTORY: Hyperlipidemia, hypertension, glaucoma.. SOCIAL HISTORY: , works at [employer]. Does not smoke or drink alcohol. FAMILY HISTORY: Diabetes. PHYSICAL EXAMINATION: Temp 97.5, pulse 116, blood pressure 136/64, BMI 33.5. Lungs fair entry. Cardiovascular first and second sounds ARE normal. Minimal upper abdominal tenderness. No guarding or rigidity. Mild right chest wall pain. INVESTIGATIONS: White count 10.5, hemoglobin 10.9, D-dimer 1.65. Potassium 4.6. BUN AND creatinine ARE normal. AST 122, ALT 113. Troponin negative. Gallbladder ultrasound shows cirrhotic morphology of liver with numerous focal nodules and there are also gallstones. CTA again shows cirrhotic morphology of liver with peripheral arterial enhancing hepatic lesions. Possible filling defect within the portal vein. ASSESSMENT: 1. Possible portal vein thrombosis related to liver abnormality. 2. Liver cirrhosis, cause unknown with the consideration for liver malignancy:. 3. Thoracic spine degenerative joint disease. 4. Essential hypertension. 5. Hyperlipidemia. 6. IV heparin monitoring. PLAN: Patient is put on IV heparin. Consultation was made with Dr. Hauser from Vascular, Dr. Lovett from GI and Dr. Renata Rojas from General Surgery. Care was discussed with the patient. Will take it from here. MMODL / IJN: [id number] /
[2017-10-05] MEDS: PANTOPRAZOLE 40 MG/10 ML VIAL IV SCH (08:00)
[2017-10-05] MEDS: LORATADINE 10 MG TAB PO SCH (08:00)
[2017-10-05] MEDS: VALSARTAN 160 MG TAB PO SCH (08:01)
[2017-10-05] MEDS: DORZOLAMIDE HCL 2% DROPS 10 ML BTL BOTH EYES SCH (08:01)
[2017-10-05 09:16] LABS: Basophils % (A) 0 %; CH 26.9; CHCM 30.5; Eosinophils % (A) 0 %; HCT 33.1 % (39.0-53.0); HDW 2.61; HGB 10.4 gm/dL (13.0-17.5); Hypochromasia Moderate; Luc # (Auto) 0.23; Luc % (Auto) 2; Lymphocytes # (A) 1.5 k/uL (1.0-4.8); Lymphocytes % (A) 12 %; MCH 27.7 pg (25.0-35.0); MCHC 31.3 g/dL (31.0-37.0); MCV 88.5 fL (80.0-100.0); Mean Platelet Volume 8.1; Monocytes % (A) 8 %; Neutrophils # (A) 9.7 k/uL (1.3-7.7); Neutrophils % (A) 77 %; RBC 3.74 m/uL (4.30-5.90); RDW 13.1 % (11.5-15.5); WBC 12.5 k/uL (3.8-10.6)
[2017-10-05] MEDS ORDERED: BARIUM SULFATE 450 ML ORAL.SUSP BOTTLE PO PRN (09:32)
[2017-10-05] MEDS ORDERED: RX INFO: IV CONTRAST WAS GIVEN 1 EACH MISC MISCELLANE PRN (09:32)
[2017-10-05] MEDS ORDERED: methylPREDNISolone SOD SUCCI 125 MG/2 ML VIAL IV ONE (09:35)
[2017-10-05] MEDS ORDERED: FAMOTIDINE 20 MG/2 ML VIAL IV ONE (09:35)
[2017-10-05] MEDS ORDERED: diphenhydrAMINE 50 MG/ML 1 ML VIAL IVP ONE (09:35)
[2017-10-05 09:40] LABS: ALT 88 U/L (21-72); AST 86 U/L (17-59); Alkaline Phosphatase 301 U/L (38-126); Anion Gap 9 mmol/L; Blood Urea Nitrogen 9 mg/dL (9-20); Calcium 8.9 mg/dL (8.4-10.2); Carbon Dioxide 25 mmol/L (22-30); Chloride 105 mmol/L (98-107); Glucose 159 mg/dL (74-99); Non-African American GFR(MDRD) >60 (>60 ml/min/1.73 sqM); Potassium 4.3 mmol/L (3.5-5.1); Sodium 139 mmol/L (137-145); Total Bilirubin 0.3 mg/dL (0.2-1.3); Total Protein 5.4 g/dL (6.3-8.2)
[2017-10-05] MEDS ORDERED: HEPARIN SODIUM,PORCINE 5,000 UNIT/ML 1 ML VIAL IV STA (10:28)
--- NOTE | 2017-10-05 10:43 | P.CONS ---
History of Present Illness - Reason for Consult Consult date: 10/05/17 liver lesions Requesting physician: Jan Walter - History of Present Illness 67-year-old gentleman past medical history glaucoma, hyperlipidemia, and hypertension. Patient presents with right upper quadrant abdominal pain and fell last . Consultation requested for liver lesions. Ultrasound abdomen reported cirrhotic morphology of the liver with numerous focal nodules possible regenerative possible neoplasm such as hepatocellular carcinoma. Cholelithiasis without signs of cholecystitis. Liver 18.8 cm. Largest isoechoic lesion measuring 2.5 cm. CBD 0.[address] chest region demonstrated cirrhotic morphology of liver with innumerable peripherally arterial enhancing hepatic lesions including hepatic cysts. Filling defect within the portal vein and portal vein prominence measuring 1.6 cm could relate to tumor thrombus or add mixing of contrast could be artifactual in nature. Mildly enlarged lymph nodes in the radha hepatis measuring up to 1 cm. Gynecomastia left greater than right. Imaging intravenous heparin. No history of known liver disorders. No history of hepatitis alcoholism and intravenous drug abuse or hepatitis B/C. No weight loss. No changes in appetite. No changes in the color of his urine or stool. White count 10.5. Hemoglobin 10.9. Platelets 385. CA-19-9 16.5. CEA less than 0.5. AFP 2.7. Total bilirubin 0.8. AST 122. ALT 113. Alkaline phosphatase 381. INR 1.2. LFTs improve this morning total bili of 0.3. AST 86. ALT 88. Alkaline phosphatase 301. Review of Systems Constitutional: Denies fever, chills, sweats, weight gain, or loss. HEENT: Negative for migraines, bilateral glaucoma, denies earaches, drainage, tinnitus, oral mucosal lesions, dysphagia, or odynophagia. Cardiac: Hyperlipidemia. Hypertension. Negative for chest pain, arrhythmias, or palpitation. Respiratory: Negative for shortness of breath, hemoptysis, cough, or sputum production. Gastrointestinal: See HPI for pertinent findings. Genitourinary: Negative for hematuria, urgency, frequency, polyuria, dysuria, or penile discharge. Musculoskeletal: Negative for muscle aches, swelling, arthritis, and arthralgias. Neurologic: Negative for stroke or TIA. Endocrine: Negative for thyroid problems. Skin: Negative for rash or itching. Psychiatric: Negative history for depression and anxiety All systems: negative (See HPI) Past Medical History Past Medical History: Eye Disorder, Hyperlipidemia, Hypertension Additional Past Medical History / Comment(s): Bilateral glaucoma History of Any Multi-Drug Resistant Organisms: None Reported Past Surgical History: Adenoidectomy, Hernia Repair, Tonsillectomy Additional Past Surgical History / Comment(s): Bilateral cataract removal with lens implants, R inguinal hernia repair. Past Anesthesia/Blood Transfusion Reactions: No Reported Reaction Smoking Status: Former smoker - Past Family History Father Family Medical History: Diabetes Mellitus Additional Family Medical History / Comment(s): Father of a diabetic coma at the age of 66 yrs. Mother Family Medical History: Cancer Additional Family Medical History / Comment(s): Mother of colon cancer. Pt unable to recall at what age. Medications and Allergies Home Medications Medication Instructions Recorded Confirmed Type Dorzolamide 2% [Trusopt 2%] 1 drop BOTH EYES DAILY 10/04/17 10/04/17 History Ibuprofen [Motrin] 800 mg PO Q8H PRN 10/04/17 10/04/17 History Latanoprost Ophth [Xalatan 0.005%] 1 drops BOTH EYES HS 10/04/17 10/04/17 History Loratadine [Claritin] 10 mg PO DAILY 10/04/17 10/04/17 History Multivitamins, Thera [Multivitamin 1 tab PO DAILY 10/04/17 10/04/17 History (formulary)] Simvastatin [Zocor] 10 mg PO HS 10/04/17 10/04/17 History Valsartan [Diovan] 160 mg PO DAILY 10/04/17 10/04/17 History Allergies Allergy/AdvReac Type Severity Reaction Status Date / Time iodine AdvReac Rash/Hives Verified 10/04/17 07:16 Penicillins AdvReac Rash/Hives Verified 10/04/17 07:16 Physical Exam Vitals: Vital Signs Temp Pulse Pulse Resp BP BP Pulse Ox 10/05/17 07:00 99.4 F 107 H 18 139/71 97 10/04/17 23:00 96.9 F L 96 16 117/62 96 10/04/17 15:00 97.5 F L 100 16 136/64 96 10/04/17 12:00 97.6 F 97 18 138/66 97 10/04/17 11:20 97.7 F 97 18 130/60 99 Intake and Output 10/04/17 10/05/17 10/05/17 22:59 06:59 14:59 Intake Total 160.667 184.183 155.15 Balance 160.667 184.183 155.15 Intake: Intake, IV Titration 160.667 184.183 155.15 Amount Heparin Sodium,Porcine/ 160.667 184.183 155.15 D5w Pmx 25,000 unit In Dextrose/Water 1 500ml. bag @ 20 mls/hr IV .Q24H [facility] Rx#:[id number] Other: # Voids 1 2 General appearance: The patient is alert, oriented, in no acute distress. HET: Head is normocephalic and atraumatic. Pupils are equal and reactive. Oropharynx is clear without lesions. Neck: Supple without lymphadenopathy. Trachea midline. Heart: S1 S2. Regular rate and rhythm. Lungs: No crackles or wheezes are heard. Abdomen: Soft, mild right upper quadrant tenderness, nondistended with bowel sounds. No peritoneal signs. No palpable organomegaly or masses. Extremities: Normal skin color and turgor. No cyanosis, rash, ulceration, clubbing, or edema. Radial and pedal pulses are 2/4 bilaterally. Neurological: No focal deficits. Strength and sensation are grossly intact. Results CBC & Chem 7: 10/05/17 08:57 10/05/17 08:57 Labs: Abnormal Lab Results - Last 24 Hours (Table) 10/04/17 10/04/17 10/05/17 Range/Units 13:02 18:53 08:57 WBC 12.5 H (3.8-10.6) k/uL RBC 3.74 L (4.30-5.90) m/uL Hgb 10.4 L (13.0-17.5) gm/dL Hct 33.1 L (39.0-53.0) % Neutrophils # 9.7 H (1.3-7.7) k/uL APTT (22.0-30.0) sec Glucose (74-99) mg/dL AST (17-59) U/L ALT (21-72) U/L Alkaline Phosphatase (38-126) U/L Total Creatine Kinase 305 H 262 H (55-170) U/L CK-MB (CK-2) 10.8 H* 8.8 H* (0.0-2.4) ng/mL Total Protein (6.3-8.2) g/dL Albumin (3.5-5.0) g/dL 10/05/17 10/05/17 Range/Units 08:57 08:57 WBC (3.8-10.6) k/uL RBC (4.30-5.90) m/uL Hgb (13.0-17.5) gm/dL Hct (39.0-53.0) % Neutrophils # (1.3-7.7) k/uL APTT 34.0 H (22.0-30.0) sec Glucose 159 H (74-99) mg/dL AST 86 H (17-59) U/L ALT 88 H (21-72) U/L Alkaline Phosphatase 301 H (38-126) U/L Total Creatine Kinase (55-170) U/L CK-MB (CK-2) (0.0-2.4) ng/mL Total Protein 5.4 L (6.3-8.2) g/dL Albumin 3.0 L (3.5-5.0) g/dL CT scan - chest: report reviewed (Dr. Guerin) US - abdomen: report reviewed (Dr. Guerin) Assessment and Plan (1) Liver lesion Narrative/Plan: Suspicious for carcinoma until proven otherwise cannot excluded metastatic disease. Possible portal vein thrombus per imaging. Chronic liver disease cannot be excluded. Current Visit: Yes Status: Acute Code(s): K76.9 - LIVER DISEASE, UNSPECIFIED SNOMED Code(s): 599533457 (2) Elevated liver enzymes Current Visit: Yes Status: Acute Code(s): R74.8 - ABNORMAL LEVELS OF OTHER SERUM ENZYMES SNOMED Code(s): 382395842 (3) Cirrhosis of liver Narrative/Plan: Etiology unclear Current Visit: Yes Status: Acute Code(s): K74.60 - UNSPECIFIED CIRRHOSIS OF LIVER SNOMED Code(s): 69053787 (4) Cholelithiasis Current Visit: Yes Status: Acute Code(s): K80.20 - CALCULUS OF GALLBLADDER W /O CHOLECYSTITIS W/O OBSTRUCTION SNOMED Code(s): 086351023 (5) Right upper quadrant abdominal pain Current Visit: Yes Status: Acute Code(s): R10.11 - RIGHT UPPER QUADRANT PAIN SNOMED Code(s): 695287662 Plan: 1. Full serologic workup for chronic liver disease. 2. Hepatitis screen. 3. CT ultrasound reviewed with radiologist before proceeding with liver biopsy would advise CT abdomen and pelvis with contrast rule to out primary GI pathology. 4. Oncology consultation. We'll follow closely with you. Thank you for this kind referral and the opportunity to participate in the care of your patient. This consultation was discussed with Dr. Guerin. The impression and plan of care have been directed as dictated.
[2017-10-05] MEDS: MULTIVITAMINS, THERA 1 EACH TAB PO SCH (12:00)
[2017-10-05] MEDS: HEPARIN SODIUM,PORCINE/D5W PMX 25,000 UNIT in DEXTROSE/WATER 1 500ML.BAG IV SCH (15:06)
[2017-10-05] MEDS: SODIUM CHLORIDE 0.9% 1,000 ML IV SCH (15:09)
--- NOTE | 2017-10-05 15:27 | P.PN ---
<Mercedez Ragland - Last Filed: 10/05/17 15:22> Subjective Progress Note Date: 10/05/17 67-year-old seen and examined at bedside labs noted and reviewed recommendations by GI service appreciated. Patient is denying abdominal discomfort when questioning. Objective - Vital Signs Vital signs: Vital Signs Temp 99 F 10/05/17 15:16 Pulse 99 10/05/17 15:16 Resp 17 10/05/17 15:16 BP 131/68 10/05/17 15:16 Pulse Ox 95 10/05/17 15:16 Intake & Output 10/04/17 10/05/17 10/05/17 18:59 06:59 18:59 Intake Total 344.850 155.15 Balance 344.850 155.15 Intake: Intake, IV Titration 344.850 155.15 Amount Heparin Sodium,Porcine/ 344.850 155.15 D5w Pmx 25,000 unit In Dextrose/Water 1 500ml. bag @ 20 mls/hr IV .Q24H [facility] Rx#:[id number] Other: # Voids 2 # Emeses 1 - Exam Physical exam Alert and oriented 3 sitting up in bed appears in no acute distress Lungs essentially clear adequate air movement on room air no cough Heart S1-S2 audible and regular Abdomen slight tenderness to the right upper quadrant not distended no nausea no vomiting but able to palpate any organ megaly or mass Extremities no edema noted - Labs CBC & Chem 7: 10/05/17 08:57 10/05/17 08:57 Labs: Abnormal Lab Results - Last 24 Hours (Table) 10/04/17 10/05/17 10/05/17 Range/Units 18:53 08:57 08:57 WBC 12.5 H (3.8-10.6) k/uL RBC 3.74 L (4.30-5.90) m/uL Hgb 10.4 L (13.0-17.5) gm/dL Hct 33.1 L (39.0-53.0) % Neutrophils # 9.7 H (1.3-7.7) k/uL APTT (22.0-30.0) sec Glucose 159 H (74-99) mg/dL AST 86 H (17-59) U/L ALT 88 H (21-72) U/L Alkaline Phosphatase 301 H (38-126) U/L Total Creatine Kinase 262 H (55-170) U/L CK-MB (CK-2) 8.8 H* (0.0-2.4) ng/mL Total Protein 5.4 L (6.3-8.2) g/dL Albumin 3.0 L (3.5-5.0) g/dL 10/05/17 Range/Units 08:57 WBC (3.8-10.6) k/uL RBC (4.30-5.90) m/uL Hgb (13.0-17.5) gm/dL Hct (39.0-53.0) % Neutrophils # (1.3-7.7) k/uL APTT 34.0 H (22.0-30.0) sec Glucose (74-99) mg/dL AST (17-59) U/L ALT (21-72) U/L Alkaline Phosphatase (38-126) U/L Total Creatine Kinase (55-170) U/L CK-MB (CK-2) (0.0-2.4) ng/mL Total Protein (6.3-8.2) g/dL Albumin (3.5-5.0) g/dL Assessment and Plan Assessment: Impression Present on admission right lateral chest wall pain suspect due to a fall 5 days prior Elevated d-dimer CAT scan of the chest no evidence of a pulmonary emboli with questionable portal vein thrombus Ultrasound of the gallbladder numerous focal nodules concern for neoplasm or hepatic cellular cancer Present on admission elevated AST,ALT , alkaline phosphatase Plan no Evidence of an acute surgical abdomen at this time we'll sign off and re- eval as needed Defer to admitting service and other consultants for further medical management The above impression and plan of care have been discussed and directed by signing physician. Mercedez Ragland nurse practitioner acting as scribe for signing physician. <Yazan,Hayder W - Last Filed: 10/06/17 13:56> Objective - Vital Signs Vital signs: Vital Signs Temp 97.7 F 10/06/17 07:00 Pulse 94 10/06/17 08:00 Resp 16 10/06/17 08:00 BP 136/68 10/06/17 07:00 Pulse Ox 97 10/06/17 07:00 Intake & Output 10/05/17 10/06/17 10/06/17 18:59 06:59 18:59 Intake Total 496.356 558.794 Balance 496.356 558.794 Intake: Intake, IV Titration 496.356 458.794 Amount Heparin Sodium,Porcine/ 196.356 458.794 D5w Pmx 25,000 unit In Dextrose/Water 1 500ml. bag @ 20 mls/hr IV .Q24H [facility] Rx#:[id number] Sodium Chloride 0.9% 1, 300 000 ml @ 100 mls/hr IV . Q10H [facility] Rx#:[id number] Oral 100 Other: Voiding Method Toilet Toilet Toilet # Voids 2 2 # Emeses 1 - Labs CBC & Chem 7: 10/06/17 09:16 10/06/17 09:16 Labs: Abnormal Lab Results - Last 24 Hours (Table) 10/05/17 10/05/17 10/06/17 Range/Units 14:58 22:11 09:16 WBC (3.8-10.6) k/uL RBC (4.30-5.90) m/uL Hgb (13.0-17.5) gm/dL Hct (39.0-53.0) % MCHC (31.0-37.0) g/dL Neutrophils # (1.3-7.7) k/uL Monocytes # (0-1.0) k/uL PT 12.7 H (9.0-12.0) sec INR 1.3 H (<1.2) APTT 41.9 H 61.6 H 50.6 H (22.0-30.0) sec Creatinine (0.66-1.25) mg/dL AST (17-59) U/L ALT (21-72) U/L Alkaline Phosphatase (38-126) U/L Total Protein (6.3-8.2) g/dL Albumin (3.5-5.0) g/dL 10/06/17 10/06/17 Range/Units 09:16 09:16 WBC 12.0 H (3.8-10.6) k/uL RBC 3.57 L (4.30-5.90) m/uL Hgb 9.8 L (13.0-17.5) gm/dL Hct 32.6 L (39.0-53.0) % MCHC 30.1 L (31.0-37.0) g/dL Neutrophils # 9.2 H (1.3-7.7) k/uL Monocytes # 1.2 H (0-1.0) k/uL PT (9.0-12.0) sec INR (<1.2) APTT (22.0-30.0) sec Creatinine 0.60 L (0.66-1.25) mg/dL AST 80 H (17-59) U/L ALT 88 H (21-72) U/L Alkaline Phosphatase 297 H (38-126) U/L Total Protein 5.2 L (6.3-8.2) g/dL Albumin 2.9 L (3.5-5.0) g/dL
--- NOTE | 2017-10-05 15:37 | CT ---
EXAMINATION TYPE: CT abdomen pelvis w con DATE OF EXAM: 10/05/2017 COMPARISON: NONE INDICATION: Patient poor historian. Abnormal cta chest. DLP: 1167.3 mGycm, Automated exposure control for dose reduction was used. CONTRAST: 100 mL of Omnipaque 300. Study performed with Oral Contrast TECHNIQUE: Axial images were obtained from above the diaphragm to the pubic rami in the axial plane a t 5 mm thick sections. Reconstructed images are reviewed on the computer in the coronal plane. FINDINGS: Limited CT sections are obtained the lung bases. There is some streak opacity within the right lower lobe likely related to some atelectasis. A minimal right pleural effusion is present.. CT ABDOMEN: Liver: There is extensive hypodensities scattered throughout the liver more apparent than on the ultr asound of 10/04/2017. Findings are compatible with metastatic type lesions. Spleen: Normal Pancreas: Normal Adrenal glands: The adrenal glands are normal. Gallbladder: Normal Kidneys: No masses are evident. No hydronephrosis is present. There is a 6.2 cm cyst on the superio r posterior pole left kidney measuring 12 Hounsfield units. Delayed images were obtained through the kidneys, which remain unremarkable. Aorta: Vascular calcification is within the aorta. Inferior vena cava: Normal. CT PELVIS: There is a large masslike area within the cecum. Additional workup for colon cancer is recommended. S ome mild wall thickening of the distalmost terminal ileum is not excluded. No dilated small bowel sug gest obstruction. Appendix: Normal as visualized. Urinary bladder: Decompressed with limited evaluation. Genitourinary structures: Prostate is very prominent. Small amount of free fluid is within the pelvis above the level of the seminal vesicles and urinary bladder. Osseous structures: No suspicious lytic or sclerotic lesions. Facet degenerative changes are present. IMPRESSIONS: 1. Masslike area within the cecum with multiple metastatic type lesions within the liver suspicious for colon cancer with metastasis. 2. Minimal right pleural effusion with adjacent atelectasis
[2017-10-05] MEDS ORDERED: HEPARIN SODIUM,PORCINE 5,000 UNIT/ML 1 ML VIAL IV ONE (16:15)
--- NOTE | 2017-10-05 17:34 | P.PN ---
Progress Note - Text Progress Note Date: 10/05/17 DATE OF SERVICE: 10/05/2017 PRESENTING COMPLAINT: Right upper chest wall chest pain HISTORY OF PRESENT ILLNESS: 67-year-old male admitted with right-sided chest wall chest pain and abdominal pain patient sustained a fall about a week ago and the areas been painful ever since. Complains of difficulty breathing. Not painful to palpate the area only hurts when he takes a deep breath. INTERVAL HISTORY: 10/05/2017: Patient seen in follow-up, lying in bed appears comfortable. Family at the bedside. Continues to have right-sided abdominal pain. Heparin drip infusing for suspected portal vein thrombosis. Await additional input from GI and oncology. Tolerating his diet, ambulatory within the room. Last BM prior to admission. Computed tomography scan of the abdomen pending. REVIEW OF SYSTEMS: Done for constitutional ,cardiovascular, GI, pulmonary with relevant findings as above. CURRENT MEDICATIONS Lipitor 10 mg by mouth at bedtime, dorzolamide 1 drop both eyes daily, IV heparin drip, hydromorphone 1 mg IV push every 3 hours, latanoprost 1 drop both eyes at bedtime, loratidine 10 mg by mouth daily, multivitamin 1 daily, Protonix 40 mg IV daily, valsartan 160 mg by mouth daily PHYSICAL EXAM VITAL SIGNS: Temperature 99.4, pulse 107, respirations 18, blood pressure 139/71, oxygen saturation 97% on room air. GENERAL APPEARANCE: Lying in bed, not in distress. EYES: Pupils equal. Conjunctiva normal. NECK: JVD not raised. Mass not palpable. RESPIRATORY: Respiratory effort normal. Lungs diminished bilaterally to auscultation. Mild right chest wall pain on inspiration CARDIOVASCULAR: First and second sounds normal. No edema. ABDOMEN: Soft. Liver and spleen not palpable. Minimal upper abdominal tenderness tenderness. No guarding or rigidity. No mass palpable. PSYCHIATRY: Alert and oriented x3. Mood and affect normal. INVESTIGATIONS: White blood cell count 12.5, hemoglobin 10.4, Accu-Cheks noted. AST 86, ALTs 88, alkaline phosphatase 301, CT of the abdomen and pelvis: Masslike area within the cecum with multiple metastatic lesions, suspicious for colon cancer with metastases ASSESSMENT: -Possible portal vein thrombosis related to liver abnormality. -Liver cirrhosis, cause unknown with consideration for liver malignancy. -Possible chronic liver disease, cause unknown -Thoracic spine degenerative joint disease. -Essential hypertension. -Hyperlipidemia. -IV-Heparin monitoring PLAN: Await additional recommendations from GI, oncology consult placed with concerns for metastatic disease/carcinoma , additional serologic workup in process for chronic liver disease, plan of care discussed at the bedside with patient, and daughter questions answered to the best of our ability. We will continue to follow closely. [employer] statement: Patient was seen and examined by nurse practitioner Nhung Richardson and all elements of the case discussed with attending Dr. Walter
--- NOTE | 2017-10-05 19:35 | P.CONS ---
History of Present Illness - Reason for Consult Consult date: 10/05/17 liver lesions Requesting physician: Micheal Gomes - Chief Complaint progressive RUQ pain - History of Present Illness Mr. Holloway is a very pleasant 67 year old male who has had sudden, progressive, constant RUQ pain after a fall about 1 week ago, sharp, not worse with eating, more sensitive when moving, he denied specific trauma to the right side. Pt states about 60lb wt. loss in the last year-attributes to no longer drinking soda, he denied sweats, dysphagia, loss of appetite or early satiety, nausea, vomiting, hematemesis, SOB, cough, abd pain or distension, indigestion, diarrhea or constipation or bleeding. Pt denies any acute changes in energy levels or pain other then as reported. Review of Systems 10 point ROS as stated in HPI Past Medical History Past Medical History: Eye Disorder, Hyperlipidemia, Hypertension Additional Past Medical History / Comment(s): Bilateral glaucoma History of Any Multi-Drug Resistant Organisms: None Reported Past Surgical History: Adenoidectomy, Hernia Repair, Tonsillectomy Additional Past Surgical History / Comment(s): Bilateral cataract removal with lens implants, R inguinal hernia repair. Past Anesthesia/Blood Transfusion Reactions: No Reported Reaction Smoking Status: Former smoker Additional Past Alcohol Use History / Comment(s): quit drinking 29+ years ago, stated occasional use prior - Past Family History Father Family Medical History: Diabetes Mellitus Additional Family Medical History / Comment(s): Father of a diabetic coma at the age of 66 yrs. Mother Family Medical History: Cancer Additional Family Medical History / Comment(s): Mother of colon cancer. Pt unable to recall at what age. Medications and Allergies Home Medications Medication Instructions Recorded Confirmed Type Dorzolamide 2% [Trusopt 2%] 1 drop BOTH EYES DAILY 10/04/17 10/04/17 History Ibuprofen [Motrin] 800 mg PO Q8H PRN 10/04/17 10/04/17 History Latanoprost Ophth [Xalatan 0.005%] 1 drops BOTH EYES HS 10/04/17 10/04/17 History Loratadine [Claritin] 10 mg PO DAILY 10/04/17 10/04/17 History Multivitamins, Thera [Multivitamin 1 tab PO DAILY 10/04/17 10/04/17 History (formulary)] Simvastatin [Zocor] 10 mg PO HS 10/04/17 10/04/17 History Valsartan [Diovan] 160 mg PO DAILY 10/04/17 10/04/17 History Allergies Allergy/AdvReac Type Severity Reaction Status Date / Time iodine AdvReac Rash/Hives Verified 10/04/17 07:16 Penicillins AdvReac Rash/Hives Verified 10/04/17 07:16 Physical Exam Vitals: Vital Signs Temp Pulse Resp BP BP Pulse Ox 10/05/17 15:16 99 F 99 17 131/68 95 10/05/17 07:00 99.4 F 107 H 18 139/71 97 10/04/17 23:00 96.9 F L 96 16 117/62 96 Intake and Output 10/05/17 10/05/17 10/05/17 06:59 14:59 22:59 Intake Total 184.183 155.15 Balance 184.183 155.15 Intake: Intake, IV Titration 184.183 155.15 Amount Heparin Sodium,Porcine/ 184.183 155.15 D5w Pmx 25,000 unit In Dextrose/Water 1 500ml. bag @ 20 mls/hr IV .Q24H [facility] Rx#:[id number] Other: # Voids 2 # Emeses 1 - Constitutional General appearance: cooperative, no acute distress, obese - EENT Eyes: anicteric sclerae, EOMI, normal appearance ENT: normal oropharynx - Neck Neck: no lymphadenopathy - Respiratory Respiratory: bilateral: CTA - Cardiovascular Rhythm: regular Heart sounds: normal: S1, S2 Abnormal Heart Sounds: no systolic murmur, no diastolic murmur, no rub, no S3 Gallop, no S4 Gallop, no click, no other leg Peripheral Edema: bilateral: None - Gastrointestinal General gastrointestinal: soft Localized gastrointestinal: tender: RUQ, RLQ - Integumentary Integumentary: normal - Neurologic Neurologic: CNII-XII intact - Musculoskeletal Musculoskeletal: strength equal bilaterally - Psychiatric Psychiatric: A&O x's 3, appropriate affect, intact judgment & insight Results CBC & Chem 7: 10/05/17 08:57 10/05/17 08:57 Labs: Abnormal Lab Results - Last 24 Hours (Table) 10/04/17 10/05/17 10/05/17 Range/Units 18:53 08:57 08:57 WBC 12.5 H (3.8-10.6) k/uL RBC 3.74 L (4.30-5.90) m/uL Hgb 10.4 L (13.0-17.5) gm/dL Hct 33.1 L (39.0-53.0) % Neutrophils # 9.7 H (1.3-7.7) k/uL APTT (22.0-30.0) sec Glucose 159 H (74-99) mg/dL AST 86 H (17-59) U/L ALT 88 H (21-72) U/L Alkaline Phosphatase 301 H (38-126) U/L Total Creatine Kinase 262 H (55-170) U/L CK-MB (CK-2) 8.8 H* (0.0-2.4) ng/mL Total Protein 5.4 L (6.3-8.2) g/dL Albumin 3.0 L (3.5-5.0) g/dL 10/05/17 10/05/17 Range/Units 08:57 14:58 WBC (3.8-10.6) k/uL RBC (4.30-5.90) m/uL Hgb (13.0-17.5) gm/dL Hct (39.0-53.0) % Neutrophils # (1.3-7.7) k/uL APTT 34.0 H 41.9 H (22.0-30.0) sec Glucose (74-99) mg/dL AST (17-59) U/L ALT (21-72) U/L Alkaline Phosphatase (38-126) U/L Total Creatine Kinase (55-170) U/L CK-MB (CK-2) (0.0-2.4) ng/mL Total Protein (6.3-8.2) g/dL Albumin (3.5-5.0) g/dL Chest x-ray: report reviewed CT scan - abdomen: report reviewed CT scan - chest: report reviewed CT scan - pelvis: report reviewed US - abdomen: report reviewed Assessment and Plan (1) Liver lesion Narrative/Plan: Case discussed with GI, plan is for CT then plans for biopsy based on the findings. Will await results and further plan for biopsy Current Visit: Yes Status: Acute Priority: High Code(s): K76.9 - LIVER DISEASE, UNSPECIFIED SNOMED Code(s): 412924926 (2) Portal vein thrombosis Narrative/Plan: Doppler ordered, not clear on CT if positive. Cont heparin for now. Will update plan of care based on results Current Visit: Yes Status: Acute Priority: High Code(s): I81 - PORTAL VEIN THROMBOSIS SNOMED Code(s): 97330519
[2017-10-05] MEDS: LATANOPROST 0.005% OPHTH DROPS 2.5 ML BTL BOTH EYES SCH (20:48)
[2017-10-05] MEDS: ATORVASTATIN 10 MG TAB PO SCH (20:48)
--- NOTE | 2017-10-05 23:01 | PN ---
PROGRESS NOTE DATE OF SERVICE: 10/05/17. ATTENDING NOTE: This patient was seen and examined by me. I discussed with my nurse practitioner, Ms. Richardson. I saw this patient this morning, presented with right-sided pain, found to have portal vein thrombosis and abnormal looking liver. The patient due for a CT scan of the abdomen and pelvis today. The patient's and daughter at the bedside. PHYSICAL EXAMINATION: Afebrile. Blood pressure 130/71. Abdomen minimal upper abdominal tenderness. PLAN: Portal vein thrombosis with liver cirrhosis or metastatic disease. PLAN: Await CT scan of the abdomen and pelvis ordered. Care was discussed with the patient and . IV heparin in place. Follow. MMODL / IJN: [id number] /
[2017-10-06] MEDS: SODIUM CHLORIDE 0.9% 1,000 ML IV SCH ×3 (01:15→20:36)
[2017-10-06] MEDS: HYDROmorphone 1 MG/ML 1 ML SYRINGE IVP PRN ×5 (03:40→23:10)
[2017-10-06] MEDS: HEPARIN SODIUM,PORCINE/D5W PMX 25,000 UNIT in DEXTROSE/WATER 1 500ML.BAG IV SCH (03:48)
[2017-10-06] MEDS: PANTOPRAZOLE 40 MG/10 ML VIAL IV SCH (08:42)
[2017-10-06] MEDS: VALSARTAN 160 MG TAB PO SCH (08:43)
[2017-10-06] MEDS: LORATADINE 10 MG TAB PO SCH (08:43)
[2017-10-06] MEDS: DORZOLAMIDE HCL 2% DROPS 10 ML BTL BOTH EYES SCH (08:43)
[2017-10-06 09:48] LABS: Basophils % (A) 0 %; CH 27.8; CHCM 30.5; Eosinophils # (A) 0.1 k/uL (0-0.7); Eosinophils % (A) 0 %; HCT 32.6 % (39.0-53.0); HGB 9.8 gm/dL (13.0-17.5); Hypochromasia Moderate; Luc # (Auto) 0.18; Luc % (Auto) 2; Lymphocytes # (A) 1.4 k/uL (1.0-4.8); Lymphocytes % (A) 12 %; MCH 27.5 pg (25.0-35.0); MCHC 30.1 g/dL (31.0-37.0); MCV 91.3 fL (80.0-100.0); Mean Platelet Volume 7.9; Monocytes # (A) 1.2 k/uL (0-1.0); Monocytes % (A) 10 %; Neutrophils # (A) 9.2 k/uL (1.3-7.7); Neutrophils % (A) 76 %; RBC 3.57 m/uL (4.30-5.90); RDW 12.1 % (11.5-15.5); WBC (Perox) 12.46
[2017-10-06 09:57] LABS: INR 1.3 (<1.2)
[2017-10-06 09:58] LABS: Partial Thromboplastin Time 50.6 sec (22.0-30.0); Prothrombin Time 12.7 sec (9.0-12.0)
[2017-10-06 10:04] LABS: ALT 88 U/L (21-72); AST 80 U/L (17-59); Alkaline Phosphatase 297 U/L (38-126); Anion Gap 6 mmol/L; Blood Urea Nitrogen 10 mg/dL (9-20); Carbon Dioxide 26 mmol/L (22-30); Chloride 107 mmol/L (98-107); Glucose 96 mg/dL (74-99); Non-African American GFR(MDRD) >60 (>60 ml/min/1.73 sqM); Potassium 4.3 mmol/L (3.5-5.1); Sodium 139 mmol/L (137-145); Total Bilirubin 0.4 mg/dL (0.2-1.3); Total Protein 5.2 g/dL (6.3-8.2)
--- NOTE | 2017-10-06 10:49 | US ---
EXAMINATION TYPE: US portal vein DATE OF EXAM: 10/06/2017 COMPARISON: CT abdomen pelvis 10/05/2017 CLINICAL HISTORY: portal vein thrombosis multiple liver masses. Metastatic disease to the liver EXAM MEASUREMENTS: Liver Length: 24.0 Gallbladder Wall: 0.4 CBD: 0.6 Right Kidney: 12.9 ANATOMY: Pancreas: obscured by bowel gas Liver: innumerable liver lesions, heterogeneous, enlarged Color flow patency within the portal vein: yes Portal Vein Flow: hepatopedal Gallbladder: wall slightly thickened Evidence for sonographic Seaman's sign: no CBD: dilated Right Kidney: enlarged IMPRESSION: Metastatic disease to the liver. Hepatomegaly. Limited exam. Portal vein thrombosis is no t evident.
--- NOTE | 2017-10-06 11:21 | P.PN ---
Subjective Progress Note Date: 10/06/17 Principal diagnosis: Abdominal pain cirrhosis hepatic lesions 67-year-old male admitted with right upper quadrant pain with elevated liver enzymes possible portal vein thrombosis and abdominal imaging suggested of multiple hepatic lesions and cirrhosis. CT abdomen and pelvis yesterday reported cecal mass suspicious for carcinoma until proven otherwise. Feels well this morning. Afebrile. Ultrasound portal vein no evidence of thrombosis. Presently receiving intravenous heparin. Liver enzymes unchanged from yesterday. Objective - Vital Signs Vital signs: Vital Signs Temp 97.7 F 10/06/17 07:00 Pulse 94 10/06/17 07:00 Resp 16 10/06/17 07:00 BP 136/68 10/06/17 07:00 Pulse Ox 97 10/06/17 07:00 Intake & Output 10/05/17 10/06/17 10/06/17 18:59 06:59 18:59 Intake Total 496.356 558.794 Balance 496.356 558.794 Intake: Intake, IV Titration 496.356 458.794 Amount Heparin Sodium,Porcine/ 196.356 458.794 D5w Pmx 25,000 unit In Dextrose/Water 1 500ml. bag @ 20 mls/hr IV .Q24H [facility] Rx#:[id number] Sodium Chloride 0.9% 1, 300 000 ml @ 100 mls/hr IV . Q10H [facility] Rx#:[id number] Oral 100 Other: Voiding Method Toilet Toilet # Voids 2 2 # Emeses 1 - Exam General appearance: The patient is alert, oriented, in no acute distress. HET: Head is normocephalic and atraumatic. Pupils are equal and reactive. Oropharynx is clear without lesions. Neck: Supple without lymphadenopathy. Trachea midline. Heart: S1 S2. Regular rate and rhythm. Lungs: No crackles or wheezes are heard. Abdomen: Soft, right upper quadrant tenderness, nondistended with bowel sounds. No peritoneal signs. No palpable organomegaly or masses. Extremities: Normal skin color and turgor. No cyanosis, rash, ulceration, clubbing, or edema. Radial and pedal pulses are 2/4 bilaterally. Neurological: No focal deficits. Strength and sensation are grossly intact. - Labs CBC & Chem 7: 10/06/17 09:16 10/06/17 09:16 Labs: Abnormal Lab Results - Last 24 Hours (Table) 10/05/17 10/05/17 10/06/17 Range/Units 14:58 22:11 09:16 WBC (3.8-10.6) k/uL RBC (4.30-5.90) m/uL Hgb (13.0-17.5) gm/dL Hct (39.0-53.0) % MCHC (31.0-37.0) g/dL Neutrophils # (1.3-7.7) k/uL Monocytes # (0-1.0) k/uL PT 12.7 H (9.0-12.0) sec INR 1.3 H (<1.2) APTT 41.9 H 61.6 H 50.6 H (22.0-30.0) sec Creatinine (0.66-1.25) mg/dL AST (17-59) U/L ALT (21-72) U/L Alkaline Phosphatase (38-126) U/L Total Protein (6.3-8.2) g/dL Albumin (3.5-5.0) g/dL 10/06/17 10/06/17 Range/Units 09:16 09:16 WBC 12.0 H (3.8-10.6) k/uL RBC 3.57 L (4.30-5.90) m/uL Hgb 9.8 L (13.0-17.5) gm/dL Hct 32.6 L (39.0-53.0) % MCHC 30.1 L (31.0-37.0) g/dL Neutrophils # 9.2 H (1.3-7.7) k/uL Monocytes # 1.2 H (0-1.0) k/uL PT (9.0-12.0) sec INR (<1.2) APTT (22.0-30.0) sec Creatinine 0.60 L (0.66-1.25) mg/dL AST 80 H (17-59) U/L ALT 88 H (21-72) U/L Alkaline Phosphatase 297 H (38-126) U/L Total Protein 5.2 L (6.3-8.2) g/dL Albumin 2.9 L (3.5-5.0) g/dL Assessment and Plan (1) Liver lesion Narrative/Plan: Suspicious for metastatic carcinoma until proven otherwise with cecal mass per CT imaging, cirrhosis unclear etiology chronic liver disease cannot be excluded. Current Visit: Yes Status: Acute Priority: High Code(s): K76.9 - LIVER DISEASE, UNSPECIFIED SNOMED Code(s): 915700811 (2) Elevated liver enzymes Current Visit: Yes Status: Acute Code(s): R74.8 - ABNORMAL LEVELS OF OTHER SERUM ENZYMES SNOMED Code(s): 050629905 (3) Cirrhosis of liver Narrative/Plan: Etiology unclear Current Visit: Yes Status: Acute Code(s): K74.60 - UNSPECIFIED CIRRHOSIS OF LIVER SNOMED Code(s): 37679548 (4) Cholelithiasis Current Visit: Yes Status: Acute Code(s): K80.20 - CALCULUS OF GALLBLADDER W /O CHOLECYSTITIS W/O OBSTRUCTION SNOMED Code(s): 992029631 (5) Right upper quadrant abdominal pain Current Visit: Yes Status: Acute Code(s): R10.11 - RIGHT UPPER QUADRANT PAIN SNOMED Code(s): 588672418 (6) Cecal lesion Narrative/Plan: Presumed neoplasm until proven otherwise Current Visit: Yes Status: Acute Code(s): K63.9 - DISEASE OF INTESTINE, UNSPECIFIED SNOMED Code(s): 634406 Plan: 1. CT report discussed with patient and his . We'll proceed with EGD colonoscopy tomorrow for evaluation of right upper quadrant pain rule out peptic ulcer disease or other upper GI abnormalities as well as evaluation of colon secondary to cecal mass identified on CT. 2. Serologic workup for chronic liver disease in progress. 3. Case discussed with oncologist Dr. Verde. The php lamp developer has discussed the risks, benefits and alternative therapies for the above-mentioned procedure and for both sedation/analgesia as well as necessary blood product administration, if indicated, as they pertain to this patient. The patient has indicated understanding and acceptance of the risks and procedures discussed. Assessment and plan a care discussed with Dr. Guerin
[2017-10-06] MEDS ORDERED: BISACODYL 5 MG TABLET.DR PO STA (11:22)
[2017-10-06] MEDS: MULTIVITAMINS, THERA 1 EACH TAB PO SCH (11:49)
--- NOTE | 2017-10-06 15:59 | P.PN ---
Progress Note - Text Progress Note Date: 10/06/17 DATE OF SERVICE: 10/06/2017 PRESENTING COMPLAINT: Right upper chest wall chest pain HISTORY OF PRESENT ILLNESS: 67-year-old male admitted with right-sided chest wall chest pain and abdominal pain patient sustained a fall about a week ago and the areas been painful ever since. Complains of difficulty breathing. Not painful to palpate the area only hurts when he takes a deep breath. INTERVAL HISTORY: 10/06/2017: Patient seen in follow-up lying in bed appears comfortable, family at the bedside area continues to have right-sided abdominal pain. Heparin should continues to infuse. Computed tomography scan of the abdomen revealed masslike area in the cecum multiple metastatic lesions concerning for cancer. GI at the bedside discussing their plan, tentatively planning for upper and lower GI scope tomorrow 10/07/2017. Oncology is awaiting additional information that the scope should reveal to develop plan further for biopsy. 10/05/2017: Patient seen in follow-up, lying in bed appears comfortable. Family at the bedside. Continues to have right-sided abdominal pain. Heparin drip infusing for suspected portal vein thrombosis. Await additional input from GI and oncology. Tolerating his diet, ambulatory within the room. Last BM prior to admission. Computed tomography scan of the abdomen pending. REVIEW OF SYSTEMS: Done for constitutional ,cardiovascular, GI, pulmonary with relevant findings as above. CURRENT MEDICATIONS Lipitor 10 mg by mouth at bedtime, dorzolamide 1 drop both eyes daily, IV heparin drip, hydromorphone 1 mg IV push every 3 hours, latanoprost 1 drop both eyes at bedtime, loratidine 10 mg by mouth daily, multivitamin 1 daily, Protonix 40 mg IV daily, valsartan 160 mg by mouth daily PHYSICAL EXAM VITAL SIGNS: Temperature 97.7, pulse 94, respiratory rate 16, blood pressure 136/68, oxygen saturation 97% on room air. GENERAL APPEARANCE: Lying in bed, not in distress. EYES: Pupils equal. Conjunctiva normal. NECK: JVD not raised. Mass not palpable. RESPIRATORY: Respiratory effort normal. Lungs diminished bilaterally to auscultation. Mild right chest wall pain on inspiration CARDIOVASCULAR: First and second sounds normal. No edema. ABDOMEN: Soft. Liver and spleen not palpable. Minimal upper abdominal tenderness tenderness. No guarding or rigidity. No mass palpable. PSYCHIATRY: Alert and oriented x3. Mood and affect normal. INVESTIGATIONS: White blood cell count 12.0, hemoglobin 9.8, INR 1.3, creatinine 0.60, AST 80, ALTs 88, alkaline phosphatase 297, Ultrasound of the abdomen: Portal vein thrombosis not evident. Metastatic disease to the liver, hepatomegaly, limited exam. CT of the abdomen and pelvis: Masslike area within the cecum with multiple metastatic lesions, suspicious for colon cancer with metastases ASSESSMENT: -Possible portal vein thrombosis related to liver abnormality, ruled out, ultrasound revealed no thrombus in the portal vein -Liver cirrhosis, cause unknown with consideration for liver malignancy. -Possible chronic liver disease, cause unknown -Thoracic spine degenerative joint disease. -Essential hypertension. -Hyperlipidemia. PLAN: EGD/colonoscopy scheduled for tomorrow, we'll await those results and this will allow for planning for possible biopsy and additional information/treatment from oncology. IV heparin stopped based on ultrasound findings of no portal vein thrombosis. Plan of care discussed at length with the patient/ family at the bedside by GI and hospitalist service questions were answered to their satisfaction. We will continue to monitor closely. PLASTICS SEASONER OPERATOR statement: Patient was seen and examined by nurse practitioner Nhung Richardson and all elements of the case discussed with attending Dr. Walter
[2017-10-06] MEDS ORDERED: PEG 3350-NA SULF,BICARB,CL/KCL 4,000 ML BOTTLE PO ONE (16:00)
[2017-10-06 16:35] LABS: Iron Saturation 6.48 (15.00-50.00); Iron(FE) 16 ug/dL (65-175); Total Iron Binding Capacity 247 ug/dL (228-460)
[2017-10-06 16:45] LABS: ANA w/Reflex to Titer NEGATIVE (NEGATIVE)
--- NOTE | 2017-10-06 18:07 | PN ---
PROGRESS NOTE DATE OF SERVICE: 2016. ATTENDING NOTE: Patient was seen and examined by me. I discussed with nurse practitioner, Ms. Richardson. This patient admitted with abdominal and chest wall pain, found to have abnormal liver cirrhosis versus a malignancy. CT scan also was abnormal showing abnormality in the colon. The patient is due for the EGD and colonoscopy tomorrow. is at the bedside. The patient will be n.p.o. after midnight. The patient's portal vein ultrasound is negative for portal vein thrombosis. ASSESSMENT: Probably metastatic disease to the liver with portal vein thrombosis ruled out. Will DC the IV heparin. Await EGD and colonoscopy tomorrow. Care was discussed with the patient and at the bedside. MMODL / IJN: [id number] /
[2017-10-06] MEDS: LATANOPROST 0.005% OPHTH DROPS 2.5 ML BTL BOTH EYES SCH (20:35)
[2017-10-06] MEDS: ATORVASTATIN 10 MG TAB PO SCH (20:35)
[2017-10-07 05:42] LABS: Basophils % (A) 0 %; CH 27.2; CHCM 30.4; Eosinophils # (A) 0.1 k/uL (0-0.7); Eosinophils % (A) 1 %; HCT 30.5 % (39.0-53.0); HDW 2.58; HGB 9.3 gm/dL (13.0-17.5); Hypochromasia Moderate; Luc # (Auto) 0.19; Luc % (Auto) 2; Lymphocytes % (A) 12 %; MCH 27.2 pg (25.0-35.0); MCHC 30.3 g/dL (31.0-37.0); MCV 89.6 fL (80.0-100.0); Mean Platelet Volume 7.3; Monocytes % (A) 11 %; Neutrophils # (A) 6.8 k/uL (1.3-7.7); Neutrophils % (A) 75 %; RBC 3.41 m/uL (4.30-5.90); RDW 13.5 % (11.5-15.5); WBC 9.1 k/uL (3.8-10.6); WBC (Perox) 9.55
[2017-10-07] MEDS: HYDROmorphone 1 MG/ML 1 ML SYRINGE IVP PRN ×5 (05:50→23:18)
[2017-10-07] MEDS: LORATADINE 10 MG TAB PO SCH (09:23)
[2017-10-07] MEDS: DORZOLAMIDE HCL 2% DROPS 10 ML BTL BOTH EYES SCH (09:23)
[2017-10-07] MEDS: VALSARTAN 160 MG TAB PO SCH (09:23)
[2017-10-07] MEDS: SODIUM CHLORIDE 0.9% 1,000 ML IV SCH ×2 (09:23→16:52)
[2017-10-07] MEDS: MULTIVITAMINS, THERA 1 EACH TAB PO SCH (11:08)
--- NOTE | 2017-10-07 14:19 | P.PN ---
Progress Note - Text Progress Note Date: 10/07/17 DATE OF SERVICE: 10/07/2017 PRESENTING COMPLAINT: Right upper chest wall chest pain HISTORY OF PRESENT ILLNESS: 67-year-old male admitted with right-sided chest wall chest pain and abdominal pain patient sustained a fall about a week ago and the areas been painful ever since. Complains of difficulty breathing. Not painful to palpate the area only hurts when he takes a deep breath. INTERVAL HISTORY: 10/07/2017: Patient seen in follow-up lying in bed appears comfortable, family at the bedside. Right-sided abdominal pain continues, nothing by mouth status maintained for colonoscopy and EGD later today. Ambulatory to and from the bathroom without assistance. 10/06/2017: Patient seen in follow-up lying in bed appears comfortable, family at the bedside area continues to have right-sided abdominal pain. Heparin should continues to infuse. Computed tomography scan of the abdomen revealed masslike area in the cecum multiple metastatic lesions concerning for cancer. GI at the bedside discussing their plan, tentatively planning for upper and lower GI scope tomorrow 10/07/2017. Oncology is awaiting additional information that the scope should reveal to develop plan further for biopsy. 10/05/2017: Patient seen in follow-up, lying in bed appears comfortable. Family at the bedside. Continues to have right-sided abdominal pain. Heparin drip infusing for suspected portal vein thrombosis. Await additional input from GI and oncology. Tolerating his diet, ambulatory within the room. Last BM prior to admission. Computed tomography scan of the abdomen pending. REVIEW OF SYSTEMS: Done for constitutional ,cardiovascular, GI, pulmonary with relevant findings as above. CURRENT MEDICATIONS Lipitor 10 mg by mouth at bedtime, dorzolamide 1 drop both eyes daily, hydromorphone 1 mg IV push every 3 hours, latanoprost 1 drop both eyes at bedtime, loratidine 10 mg by mouth daily, multivitamin 1 daily, valsartan 160 mg by mouth daily PHYSICAL EXAM VITAL SIGNS: Temperature 98.8, pulse 97, respiratory rate 16, blood pressure 134/69, oxygen saturation 93% on room air. GENERAL APPEARANCE: Lying in bed, not in distress. EYES: Pupils equal. Conjunctiva normal. NECK: JVD not raised. Mass not palpable. RESPIRATORY: Respiratory effort normal. Lungs diminished bilaterally to auscultation. Mild right chest wall pain on inspiration CARDIOVASCULAR: First and second sounds normal. No edema. ABDOMEN: Soft. Liver and spleen not palpable. Minimal upper abdominal tenderness tenderness. No guarding or rigidity. No mass palpable. PSYCHIATRY: Alert and oriented x3. Mood and affect normal. INVESTIGATIONS: Hemoglobin 9.3 ASSESSMENT: -Possible portal vein thrombosis related to liver abnormality, ruled out, ultrasound revealed no thrombus in the portal vein -Liver cirrhosis, cause unknown with consideration for liver malignancy. -Possible chronic liver disease, cause unknown -Thoracic spine degenerative joint disease. -Essential hypertension. -Hyperlipidemia. PLAN: EGD/colonoscopy scheduled for today, we'll await those results and this will allow for planning for possible biopsy and additional information/treatment from oncology. Plan of care discussed with the patient/ family at the bedside. We will continue to monitor closely. S3B MULTI SENSOR OPERATOR statement: Patient was seen and examined by nurse practitioner Nhung Richardson and all elements of the case discussed with attending Dr. Walter
[2017-10-07] MEDS ORDERED: IV FLUID CONTINUATION 1,000 ML IV ONE (15:37)
[2017-10-07] MEDS ORDERED: PROPOFOL 10 MG/ML 20 ML VIAL IV ONE (15:43)
[2017-10-07] MEDS ORDERED: LIDOCAINE 1% INJ 10MG/ML (20 ML MDV) ONE (15:43)
--- NOTE | 2017-10-07 17:15 | P.PCN ---
Date of Procedure: 10/07/17 Procedure(s) Performed: Procedures: 1. Esophagogastroduodenoscopy and biopsy. 2. Colonoscopy and biopsy. Preoperative diagnosis: Abdominal pains, cecal mass on CT and abnormal liver tests with lesions on the liver suspicious of metastatic liver disease. Postoperative diagnosis: 1. Very small sliding hiatal hernia with no obvious esophagitis or complicated reflux disease. 2. Antral gastritis with few erosions and small ulcerations but no active bleeding in the stomach. 3. Ulcerated cecal mass consistent with cancer pictures and biopsies obtained. 4. Reddish discoloration of the fecal water and debris could be on the basis of bleeding from the cecal mass or diverticular disease or from the oral lavage he had in preparing for this exam. Preparation: [facility] area didn't Sedation: Was provided by anesthesia. Brief clinical history: The patient is a 67-year-old male who was admitted with right upper quadrant pain with elevated liver enzymes, possible portal vein thrombosis and abdominal imaging suggestive of multiple hepatic lesions and cirrhosis. CT abdomen and pelvis reported cecal mass suspicious for carcinoma until proven otherwise. The details are summarized in the history and physical and dictated consultation and progress notes. Procedure: With the patient on his left lateral decubitus position and after informed consent and adequate sedation, I passed a Olympus-GIF 160 video upper endoscope through the cricopharyngeus down the esophagus. GE junction was around 41-42 cm from the incisors and there was a very small sliding hiatal hernia. The esophagus did not show any evidence of esophagitis or complicated reflux disease. The endoscope was then passed into the stomach which was insufflated with air and inspected in detail including the retroflex view in the cardia. There was some mottling and erythema in the antrum and there were 3 or 4 small ulcerations and occasional erosion in the antrum consistent with gastritis but there were no large ulcers or active bleeding. Pyloric channel, duodenal bulb, post bulbar area and descending duodenum appeared within normal limits. I obtained biopsies from the antrum then the endoscope was withdrawn and I proceeded to do colonoscopy. Perianal area did not show any fissures or fistulas. There were no masses felt on digital rectal examination. The Olympus CFQ 160L video colonoscope was then inserted in the rectum and the usual fashion and advanced to the cecum. Multiple diverticular orifices were seen scattered in the sigmoid. There was an ulcerated cecal mass consistent with cancer corresponding to the area of abnormality on CT. I obtained multiple pictures of that area and I obtained multiple biopsies. There was no spontaneous bleeding from the cecal mass, however, note should be made that the fecal water and fecal debris on the left side and distal transverse had reddish discoloration which the patient believes is related to the lavage preparation he used. No other biopsies were indicated. I retroflexed the endoscope in the rectum before the endoscope was withdrawn. The patient tolerated the procedure well Plan: Discussed the findings with the patient and his family. Will await biopsy results and make further plans based on his course and biopsy results.
[2017-10-07] MEDS: LATANOPROST 0.005% OPHTH DROPS 2.5 ML BTL BOTH EYES SCH (20:10)
[2017-10-07] MEDS: ATORVASTATIN 10 MG TAB PO SCH (20:10)
--- NOTE | 2017-10-08 08:18 | PN ---
PROGRESS NOTE DATE OF SERVICE: 10/07/2017. ATTENDING NOTE: The patient was seen and examined by me. I discussed with the nurse practitioner, Ms. Richardson. The patient presented with chest pain. is at the bedside. I saw this patient this morning. Patient is awaiting an EGD and a colonoscopy. PHYSICAL EXAMINATION: ABDOMEN: Soft, nontender. ASSESSMENT: Normal liver pathology with a questionable colon abnormality, suspicious for malignancy. PLAN: Await EGD, colonoscopy. Portal vein thrombosis was ruled out. IV heparin was discontinued. MMODL / IJN: [id number] /
[2017-10-08] MEDS: SODIUM CHLORIDE 0.9% 1,000 ML IV SCH ×2 (09:06→11:03)
[2017-10-08] MEDS: DORZOLAMIDE HCL 2% DROPS 10 ML BTL BOTH EYES SCH (09:07)
[2017-10-08] MEDS: LORATADINE 10 MG TAB PO SCH (09:07)
[2017-10-08] MEDS: VALSARTAN 160 MG TAB PO SCH (09:07)
[2017-10-08] MEDS: HYDROmorphone 1 MG/ML 1 ML SYRINGE IVP PRN ×3 (09:13→18:55)
[2017-10-08] MEDS: MULTIVITAMINS, THERA 1 EACH TAB PO SCH (11:03)
--- NOTE | 2017-10-08 14:40 | PN ---
PROGRESS NOTE DATE OF SERVICE: 10/07/2017 ATTENDING NOTE: This patient was seen and examined by me. I discussed with the nurse practitioner, Ms. Richardson. The patient is status post colonoscopy, now showing a cecal ulcerated mass highly suspicious for malignancy. Biopsies were done. is at the bedside. Mild abdominal discomfort. PHYSICAL EXAMINATION: Temperature 99.4, pulse 99, blood pressure 136/71. ABDOMEN: Soft, minimal tenderness. Lungs are clear. White count 9.1, hemoglobin 9.3. ASSESSMENT: Strongly suspicious for colon cancer with ulcerated mass with possible liver metastasis. PLAN: Will await input from Oncology and GI. Patient may be able to go home and come back for further treatment. Will let determination be made with my colleagues. I did speak to the patient and the at the bedside. Currently, the biopsy results are pending. MMODL / IJN: [id number] /
--- NOTE | 2017-10-08 16:02 | US ---
EXAMINATION TYPE: US biopsy liver DATE OF EXAM: 10/08/2017 HISTORY: Liver masses. FINDINGS: Maximal barrier technique was utilized. The skin overlying a suitable path to the patient' s mass in the left lobe of liver was localized with ultrasound and the overlying skin prepped and star ped. Ultrasound was utilized with sterile technique. Lidocaine was used for local anesthesia. A sk in dora was made with a scalpel. An 18-gauge needle was advanced under direct ultrasound guidance an d core specimen obtained of the mass. Specimen submitted in formalin to Pathology. Following the pr ocedure, hemostasis achieved and the patient is discharged in stable condition without complication. IMPRESSION:STATUS POST ULTRASOUND GUIDED CORE BIOPSY OF liver MASS, PATHOLOGY IS PENDING. THIS PROCE DURE IS PERFORMED BY THE UNDERSIGNED.
--- NOTE | 2017-10-08 18:50 | P.PN ---
Progress Note - Text Progress Note Date: 10/08/17 DATE OF SERVICE: 10/08/2017 PRESENTING COMPLAINT: Right upper chest wall chest pain HISTORY OF PRESENT ILLNESS: 67-year-old male admitted with right-sided chest wall chest pain and abdominal pain patient sustained a fall about a week ago and the areas been painful ever since. Complains of difficulty breathing. Not painful to palpate the area only hurts when he takes a deep breath. INTERVAL HISTORY: 10/08/2017: Patient seen in follow-up lying in bed appears comfortable, family at the bedside. Continues to have right and some left-sided abdominal pain. Diet is full liquid diet tolerating it well advanced per GI preference. Ambulatory to and from the bathroom without assistance last BM 10/07/2017 10/07/2017: Patient seen in follow-up lying in bed appears comfortable, family at the bedside. Right-sided abdominal pain continues, nothing by mouth status maintained for colonoscopy and EGD later today. Ambulatory to and from the bathroom without assistance. 10/06/2017: Patient seen in follow-up lying in bed appears comfortable, family at the bedside area continues to have right-sided abdominal pain. Heparin should continues to infuse. Computed tomography scan of the abdomen revealed masslike area in the cecum multiple metastatic lesions concerning for cancer. GI at the bedside discussing their plan, tentatively planning for upper and lower GI scope tomorrow 10/07/2017. Oncology is awaiting additional information that the scope should reveal to develop plan further for biopsy. 10/05/2017: Patient seen in follow-up, lying in bed appears comfortable. Family at the bedside. Continues to have right-sided abdominal pain. Heparin drip infusing for suspected portal vein thrombosis. Await additional input from GI and oncology. Tolerating his diet, ambulatory within the room. Last BM prior to admission. Computed tomography scan of the abdomen pending. REVIEW OF SYSTEMS: Done for constitutional ,cardiovascular, GI, pulmonary with relevant findings as above. CURRENT MEDICATIONS Lipitor 10 mg by mouth at bedtime, dorzolamide 1 drop both eyes daily, hydromorphone 1 mg IV push every 3 hours, latanoprost 1 drop both eyes at bedtime, loratidine 10 mg by mouth daily, multivitamin 1 daily, valsartan 160 mg by mouth daily PHYSICAL EXAM VITAL SIGNS: Temperature 98.8, pulse 97, respiratory rate 16, blood pressure 134/69, oxygen saturation 93% on room air. GENERAL APPEARANCE: Lying in bed, not in distress. EYES: Pupils equal. Conjunctiva normal. NECK: JVD not raised. Mass not palpable. RESPIRATORY: Respiratory effort normal. Lungs diminished bilaterally to auscultation. Mild right chest wall pain on inspiration CARDIOVASCULAR: First and second sounds normal. No edema. ABDOMEN: Soft. Liver and spleen not palpable. Minimal upper abdominal tenderness tenderness. No guarding or rigidity. No mass palpable. PSYCHIATRY: Alert and oriented x3. Mood and affect normal. INVESTIGATIONS: Hemoglobin 9.3, Ultrasound biopsy of the liver: Pending ASSESSMENT: -Ulcerated cecal mass consistent with computed tomography scan images and biopsies obtained. -Very small sliding hiatal hernia, no esophagitis or complicated reflux disease. -Gastritis located in the antrum with few erosions and small ulcerations no active bleeding. -Possible portal vein thrombosis related to liver abnormality, ruled out, ultrasound revealed no thrombus in the portal vein -Liver cirrhosis, cause unknown with consideration for liver malignancy. -Possible chronic liver disease, cause unknown -Thoracic spine degenerative joint disease. -Essential hypertension. -Hyperlipidemia. PLAN: EGD colonoscopy yesterday suspicious for malignancy shows a cecal ulcerated mass as listed above. Oncology remains on consult, ultrasound biopsy of the liver pending. Plan of care discussed with the patient/ family at the bedside. We will continue to monitor closely. FLAGMAN statement: Patient was seen and examined by nurse practitioner Nhung Richardson and all elements of the case discussed with attending Dr. Walter
[2017-10-08] MEDS: ATORVASTATIN 10 MG TAB PO SCH (22:09)
[2017-10-08] MEDS: LATANOPROST 0.005% OPHTH DROPS 2.5 ML BTL BOTH EYES SCH (22:09)
[2017-10-08 23:05] VITALS: RESP 18
[2017-10-09] MEDS: HYDROmorphone 1 MG/ML 1 ML SYRINGE IVP PRN (04:33)
[2017-10-09] MEDS: SODIUM CHLORIDE 0.9% 1,000 ML IV SCH ×2 (06:36→08:34)
[2017-10-09 08:20] LABS: Anion Gap 7 mmol/L; Blood Urea Nitrogen 11 mg/dL (9-20); Calcium 8.7 mg/dL (8.4-10.2); Carbon Dioxide 25 mmol/L (22-30); Chloride 109 mmol/L (98-107); Glucose 116 mg/dL (74-99); Non-African American GFR(MDRD) >60 (>60 ml/min/1.73 sqM); Potassium 4.1 mmol/L (3.5-5.1); Sodium 141 mmol/L (137-145)
[2017-10-09] MEDS: VALSARTAN 160 MG TAB PO SCH (08:34)
[2017-10-09] MEDS: LORATADINE 10 MG TAB PO SCH (08:34)
[2017-10-09] MEDS: DORZOLAMIDE HCL 2% DROPS 10 ML BTL BOTH EYES SCH (08:34)
[2017-10-09] MEDS ORDERED: HYDROcodone/APAP 5-325MG 1 EACH TAB PO PRN (11:29)
[2017-10-09] MEDS: MULTIVITAMINS, THERA 1 EACH TAB PO SCH (11:50)
[2017-10-09] MEDS ORDERED: INFLUENZA VACCINE (6 MOS+) 60 MCG/0.5 ML SYRINGE IM ONE (13:57)
[2017-10-09 15:50] VITALS: BP 140/63; PULSE 112; TEMP 97.4
--- NOTE | 2017-10-09 18:00 | P.DS ---
Providers Date of admission: 10/06/17 15:51 Expected date of discharge: 10/09/17 Attending physician: Jan Walter Consults: 10/04/17 10:17 Consult Physician Urgent Consulting Provider: Cecilia Rojas Consult Reason/Comments: Cholelithiasis, liver lesions Do you want consulting provider notified?: Yes 10/04/17 10:18 Consult Physician Urgent Consulting Provider: Randall Verde Consult Reason/Comments: Liver lesions Do you want consulting provider notified?: Yes 10/04/17 10:45 Consult Physician Urgent Consulting Provider: Cruz Hauser Consult Reason/Comments: eval for portal vein thrombosis Do you want consulting provider notified?: Yes Primary care physician: [facility] Course: FINAL DIAGNOSES: -Ulcerated cecal mass consistent with computed tomography scan images and biopsies obtained. -Very small sliding hiatal hernia, no esophagitis or complicated reflux disease. -Gastritis located in the antrum with few erosions and small ulcerations no active bleeding. -Possible portal vein thrombosis related to liver abnormality, ruled out, ultrasound revealed no thrombus in the portal vein -Liver cirrhosis, cause unknown with consideration for liver malignancy. -Possible chronic liver disease, cause unknown -Thoracic spine degenerative joint disease. -Essential hypertension. -Hyperlipidemia. HOSPTIAL COURSE: 67-year-old male admitted with right-sided chest wall chest pain and abdominal pain secondary to fall sustained at work has had pain and painful breathing ever since. Patient also had acute abdominal pain associated with that was admitted for the same. Home medications reordered, consults placed to Gen. surgery, GI, oncology, vascular surgery, and interventional radiology. General surgery evaluated the patient and also associated testing, no evidence of acute surgical abdomen and they signed off. Vascular surgery was consulted reviewed all testing and imaging which was concerning for possible portal vein thrombosis , patient initiated on heparin. GI evaluated the patient elected to do an EGD and colonoscopy patient was found to have very small sliding hiatal hernia, antral gastritis, ulcerated cecal mass consistent with cancer. Oncology consulted and they evaluated testing and imaging and they are going to see the patient in the outpatient setting to further plan for biopsy. Patient's diet advanced, tolerating his diet, ambulatory in the room and hallway, anxious to go home. Patient's condition stable and consultants agree his discharge appropriate. PHYSICAL EXAM: CARDIOVASCULAR: First and second sounds noted no edema RESPIRATORY: Respiratory effort normal lung sounds diminished bilaterally GI: Abdomen soft and right upper quadrant tender to palpation, liver and spleen not palpable. MUSKULOSKELETAL: Ambulatory independently. PSYCHIATRY: Alert and oriented 3 mood and affect normal. Patient was seen and examined by nurse practitioner Nhung Richardson in all elements of the case discussed with attending Dr. Walter DISPOSITION: Home to the care of his family Plan - Discharge Summary Discharge Rx Participant: Yes New Discharge Prescriptions: Continue Valsartan [Diovan] 160 mg PO DAILY Simvastatin [Zocor] 10 mg PO HS Multivitamins, Thera [Multivitamin (formulary)] 1 tab PO DAILY Loratadine [Claritin] 10 mg PO DAILY Latanoprost Ophth [Xalatan 0.005%] 1 drops BOTH EYES HS Ibuprofen [Motrin] 800 mg PO Q8H PRN PRN Reason: Pain Dorzolamide 2% [Trusopt 2%] 1 drop BOTH EYES DAILY Discharge Medication List Dorzolamide 2% [Trusopt 2%] 1 drop BOTH EYES DAILY 10/04/17 [History] Ibuprofen [Motrin] 800 mg PO Q8H PRN 10/04/17 [History] Latanoprost Ophth [Xalatan 0.005%] 1 drops BOTH EYES HS 10/04/17 [History] Loratadine [Claritin] 10 mg PO DAILY 10/04/17 [History] Multivitamins, Thera [Multivitamin (formulary)] 1 tab PO DAILY 10/04/17 [History ] Simvastatin [Zocor] 10 mg PO HS 10/04/17 [History] Valsartan [Diovan] 160 mg PO DAILY 10/04/17 [History] Follow up Appointment(s)/Referral(s): Randall Verde MD [STAFF PHYSICIAN] - 1 Week (office closed, please call and schedule an appointment) Geoffrey Guerin MD [STAFF PHYSICIAN] - 2 Weeks (office closed, please call and schedule follow up appointment ) Omid Blackburn DO [Primary Care Provider] - 3 Days (office closed, please call and schedule follow up appointment ) Cecilia Rojas MD [STAFF PHYSICIAN] - As Needed (office closed, please call and schedule follow up appointment) Cruz Hauser MD [STAFF PHYSICIAN] - As Needed Activity/Diet/Wound Care/Special Instructions: regular diet activity as tolerated not to return to work until seen by dr. Verde/oncology Discharge Disposition: HOME SELF-CARE
--- NOTE | 2017-10-10 07:47 | DS ---
DISCHARGE SUMMARY DATE OF ADMISSION: 10/06/17 DATE OF DISCHARGE: 10/09/17. ATTENDING NOTE: Patient seen and examined by me. I discussed with my nurse practitioner, Ms. Richardson. This is a patient who presented with not feeling well some abdominal pain found to have abnormal-looking liver. Colonoscopy showed a ulcerated cecal mass, liver abnormally now strongly felt to be metastatic disease. The patient's alpha antitrypsin is up at 255. I spoke to Dr. Verde today. The biopsy results are pending from the colonoscopy. He will follow up with the patient in the office and direct care from there. I discussed with the patient's . The patient has been able to tolerate his meals rather well. Very slight discomfort in the abdomen. On exam abdomen soft, nontender. The patient is also being discharged home and will follow up with Dr. Verde and the patient does not seem to have cirrhosis and more definite findings after the biopsy results. Of note, the patient also had a liver biopsy. Also, portal vein thrombosis was ruled out. Discharge planning more than 35 minutes. MMODL / IJN: [id number] /
--- NOTE | 2017-10-27 20:39 | PN ---
PROGRESS NOTE ADDENDUM: On examination, lungs reveal fair air entry. ABDOMEN: Minimal tenderness. No guarding or rigidity. MMODL / IJN: [id number] /
--- NOTE | 2017-11-01 17:30 | PN ---
PROGRESS NOTE ADDENDUM: Addendum to progress note on Ottoniel Holloway on 10/08/17 DATE OF SERVICE: 10/08/17. CORRECTION: The patient's note dictated on 10/08/2017 at 14:18 pm, date transcribed on 10/08/2017 at 14:33 pm. The correct date of service should read 10/08/17. MMREGINO / IJN: [id number] /
--- NOTE | 2017-11-14 15:27 | PN ---
PROGRESS NOTE ADDENDUM: For the note dictated on October 27, 2017 time 1926 pm, date transcribed 10/27/172030. Date of service is 10/06/17. MMODL / IJN: [id number] /
== END 2017-10-09 15:55 | disposition home or self-care (01) | DRG 375 ==
LOC: EC 06:19 → INTOOBSV 10:17 → 4MS4W 10:17 → OBSVTOIN 10-06 15:51
PROVIDERS: ADMIT Hospitalist; ATTEND Hospitalist
PROC: 0DB68ZX Excision of Stomach, Via Natural or Artificial Opening Endoscopic, Diagnostic (ICD-10-PCS; principal; 2017-10-07 15:00)
PROC: 0DBH8ZX Excision of Cecum, Via Natural or Artificial Opening Endoscopic, Diagnostic (ICD-10-PCS; 2017-10-07 15:00)
DX: C18.0 Malignant neoplasm of cecum (principal); C78.7 Secondary malignant neoplasm of liver and intrahepatic bile duct; I10 Essential (primary) hypertension; K29.60 Other gastritis without bleeding; E78.5 Hyperlipidemia, unspecified; I49.3 Ventricular premature depolarization; K80.20 Calculus of gallbladder without cholecystitis without obstruction; R00.0 Tachycardia, unspecified; F17.210 Nicotine dependence, cigarettes, uncomplicated; N62 Hypertrophy of breast; J30.2 Other seasonal allergic rhinitis; K44.9 Diaphragmatic hernia without obstruction or gangrene; H40.9 Unspecified glaucoma; Z96.1 Presence of intraocular lens; Z98.41 Cataract extraction status, right eye; Z98.42 Cataract extraction status, left eye; Z90.49 Acquired absence of other specified parts of digestive tract; Z80.0 Family history of malignant neoplasm of digestive organs; Z88.0 Allergy status to penicillin; Z83.3 Family history of diabetes mellitus; Z91.048 Other nonmedicinal substance allergy status; Z79.899 Other long term (current) drug therapy; Z87.19 Personal history of other diseases of the digestive system; Y99.0 Civilian activity done for income or pay; W01.0XXA Fall on same level from slipping, tripping and stumbling without subsequent striking against object, initial encounter; M51.34 Other intervertebral disc degeneration, thoracic region
CPT/HCPCS: 36415; 43239; 45380; 47000; 71020; 71275; 74177; 76705; 76942; 80048; 80053; 80074; 82103; 82105; 82272; 82378; 82390; 82550; 82553; 82728; 83516; 83540; 83550; 83735; 84165; 84484; 85025; 85379; 85610; 85730; 86038; 86301; 88305; 88307; 88341; 88342; 90686; 93005; 93976; 96365; 96372; 96375; 96376; 99285